=== PATIENT | male | born 2000 | race Caucasian/White ===

== ENCOUNTER 2023-08-27 10:00 | Emergency (ER) | payer OTHER, SELFPAY ==
[2023-08-27 10:10] VITALS: BP 136/92; PULSE 76; RESP 18; TEMP 36.7; O2SAT 98; BMI 25.7
--- NOTE | 2023-08-27 10:23 | ED.NAVMDI1 ---
HPI - Nausea/Vomiting/Diarrhea General Chief complaint: Abdominal Pain Stated complaint: ABDOMINAL PAIN/VOMITING Time Seen by Provider: 08/27/23 10:17 History of Present Illness HPI Narrative: 23-year-old male presents for nausea and vomiting which began about midnight. No diarrhea or fever or hematemesis. He does not have a history of intestinal issues. He has not been around anybody who has been ill. He reports that his stomach hurts as well. Related Data Previous Rx's ?Medication ?Instructions ?Recorded ondansetron 4 mg disintegrating 4 mg PO Q6H PRN nausea and 08/27/23 tablet vomiting #20 tabs Allergies Allergy/AdvReac Type Severity Reaction Status Date / Time No Known Drug Allergies Allergy Verified 08/27/23 10:10 Review of Systems ROS Narrative A ten point review of systems is negative except as noted above. Exam Narrative Exam Narrative: Nurses note and vital signs reviewed and patient is not hypoxic. General: The patient appears well and in no apparent distress. Patient is resting comfortably on cart. Skin: Warm, dry, pallor noted. There is no rash noted. Head: Normocephalic, atraumatic Eye: Normal conjunctiva, no drainage Ears, Nose, Mouth, and Throat: oral mucosa is moist. Nares patent. Cardiovascular: Regular Rate and Rhythm Respiratory: Patient is in no distress, no accessory muscle use, lungs are clear to auscultation, no wheezing, rales or rhonchi Back: non-tender GI: no tenderness to palpation, no masses appreciated. No rebound, guarding, or rigidity noted. Musculoskeletal: The patient has no evidence of calf tenderness, no pitting edema, symmetrical pulses noted bilaterally Neurological: A&O, normal speech Psychiatric: Cooperative Constitutional Vital Signs, click to edit/add: Last Vital Signs Temp 98.1 F 08/27/23 10:10 Pulse 76 08/27/23 10:10 Resp 18 08/27/23 10:10 BP 136/92 H 08/27/23 10:10 Pulse Ox 98 08/27/23 10:10 O2 Del Method Room Air 08/27/23 10:10 Course Vital Signs Vital signs: Vital Signs Temperature 98.1 F 08/27/23 10:10 Pulse Rate 76 08/27/23 10:10 Respiratory Rate 18 08/27/23 10:10 Blood Pressure 136/92 H 08/27/23 10:10 Pulse Oximetry 98 08/27/23 10:10 Oxygen Delivery Method Room Air 08/27/23 10:10 Temperature 98.1 F 08/27/23 10:10 Pulse Rate 76 08/27/23 10:10 Respiratory Rate 18 08/27/23 10:10 Blood Pressure 136/92 H 08/27/23 10:10 Pulse Oximetry 98 08/27/23 10:10 Oxygen Delivery Method Room Air 08/27/23 10:10 MDM - Nausea/Vomiting/Diarrhea MDM Narrative Medical decision making narrative: Blood work is nonspecific. The patient feels improved after being given IV fluids and Zofran and is able to be discharged home. Treatment diagnosis and follow-up were discussed with the patient. Differential Diagnosis Differential diagnosis: Likely food poisoning, gastroenteritis and dehydration Lab Data Attestation: I reviewed the patient's lab results. Labs: Lab Results 08/27/23 Range/Units 10:24 WBC 13.4 H (4.0-11.0) 10^3/uL RBC 5.81 (4.70-6.10) 10^6/uL Hgb 17.5 (14.0-18.0) g/dL Hct 51.3 (42.0-54.0) % MCV 88.3 (80.0-94.0) fL MCH 30.1 (25.9-34.0) pg MCHC 34.1 (29.9-35.2) g/dL RDW 12.1 (11.0-15.0) % Plt Count 302 (150-450) 10^3/uL MPV 9.6 (9.5-13.5) fL Neut % (Auto) 93.0 H (43.0-75.0) % Lymph % (Auto) 2.2 L (20.5-60.0) % [place] % (Auto) 3.4 (1.7-12.0) % Eos % (Auto) 0.9 (0.9-7.0) % Baso % (Auto) 0.2 (0.2-2.0) % Neut # (Auto) 12.5 H (1.4-6.5) 10^3/uL Lymph # (Auto) 0.3 L (1.2-3.8) 10^3/uL [place] # (Auto) 0.5 (0.3-0.8) 10^3/uL Eos # (Auto) 0.1 (0.0-0.7) 10^3/uL Baso # (Auto) 0.0 (0.0-0.1) 10^3/uL Abs Immat Gran (auto) 0.04 H (0.00-0.03) 10^3/uL Imm/Tot Granulo (auto) 0.3 (0.0-0.5) % Sodium 141 (136-145) mmol/L Potassium 4.1 (3.5-5.1) mmol/L Chloride 102 (98-107) mmol/L Carbon Dioxide 23.7 (21.0-32.0) mmol/L Anion Gap 19.4 BUN 19.0 H (7.0-18.0) mg/dL Creatinine 1.18 (0.70-1.30) mg/dL Est GFR ( Amer) >60 (>=60) Est GFR (Non-Af Amer) >60 (>=60) BUN/Creatinine Ratio 16.1 Glucose 186 H (74-106) mg/dL Calcium 9.3 (8.5-10.1) mg/dL Discharge Plan Discharge Stand Alone Forms: Portal Instructions Chief Complaint: Abdominal Pain Clinical Impression: Nausea and vomiting Patient Disposition: Home, Self-Care Time of Disposition Decision: 11:31 Condition: Good Mode of Transportation: Private Vehicle Prescriptions / Home Meds: New ondansetron 4 mg tablet,disintegrating 4 mg PO Q6H PRN (Reason: nausea and vomiting) Qty: 20 0RF Print Language: Luxembourgish Instructions: Acute Nausea and Vomiting (ED) Referrals: Physician,Non-Staff, MD [Primary Care Provider] - 1 week
[2023-08-27] MEDS: 0.9 % SODIUM CHLORIDE 1,000 ML 1000 ML IV (10:27)
[2023-08-27] MEDS: ONDANSETRON PF 4 MG/2 ML VIAL IV (10:27)
[2023-08-27 10:48] LABS: Basophils Percent Auto 0.2 % (0.2-2.0); Eosinophils Absolute Auto 0.1 10^3/uL (0.0-0.7); Eosinophils Percent Auto 0.9 % (0.9-7.0); Hematocrit 51.3 % (42.0-54.0); Hemoglobin 17.5 g/dL (14.0-18.0); Immature Granulocytes Abs Auto 0.04 10^3/uL (0.00-0.03); Immature Granulocytes Pct Auto 0.3 % (0.0-0.5); Lymphocytes Absolute Auto 0.3 10^3/uL (1.2-3.8); Lymphocytes Percent Auto 2.2 % (20.5-60.0); Mean Corpuscular HGB Conc 34.1 g/dL (29.9-35.2); Mean Corpuscular Hemoglobin 30.1 pg (25.9-34.0); Mean Corpuscular Volume 88.3 fL (80.0-94.0); Mean Platelet Volume 9.6 fL (9.5-13.5); Monocytes Absolute Auto 0.5 10^3/uL (0.3-0.8); Monocytes Percent Auto 3.4 % (1.7-12.0); Neutrophils Absolute Auto 12.5 10^3/uL (1.4-6.5); Platelet Count 302 10^3/uL (150-450); Red Blood Count 5.81 10^6/uL (4.70-6.10); Red Cell Distribution Width 12.1 % (11.0-15.0); White Blood Count 13.4 10^3/uL (4.0-11.0)
[2023-08-27 11:10] LABS: Anion Gap 19.4; BUN Creatinine Ratio 16.1; Calcium 9.3 mg/dL (8.5-10.1); Carbon Dioxide 23.7 mmol/L (21.0-32.0); Chloride 102 mmol/L (98-107); Estimated GFR (African America >60 (>=60); Estimated GFR (Non-African Ame >60 (>=60); Glucose 186 mg/dL (74-106); Potassium 4.1 mmol/L (3.5-5.1); Sodium 141 mmol/L (136-145)
[2023-08-27 11:37] VITALS: BP 129/86; PULSE 86; RESP 18; O2SAT 98
== END 2023-08-27 11:38 | disposition home or self-care (01) ==
PROVIDERS: Emergency Provider Emergency Medicine
DX: R11.2 Nausea with vomiting, unspecified (principal)
CPT/HCPCS: 36415; 80048; 85025; 96374; 99284

== ENCOUNTER 2024-06-30 22:51 | Emergency (ER) | payer OTHER, SELFPAY ==
[2024-06-30 22:53] VITALS: BP 146/84; PULSE 71; TEMP 37.1; O2SAT 98; BMI 26.4
--- NOTE | 2024-06-30 23:01 | ECG_ITS ---
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
--- NOTE | 2024-06-30 23:13 | XR_ITS ---
The [place] [id number] Patient Name: BLANCA MADERA MRN: [id number] date: 2000 Sex: M Assigned Patient Location: ER Current Patient Location: ER Accession/Order Number: [id number] Exam Date: 06/30/2024 23:20 Report Date: 06/30/2024 23:55 At the request of: LILIANE LR Procedure: XR chest 1V EXAM: XR chest 1V HISTORY: Chest pain. Near syncope. COMPARISON: None. TECHNIQUE: One view. FINDINGS: Cardiomediastinal silhouette and pulmonary vascularity are within normal limits. The lungs and the costophrenic angles are clear. XR/XR chest 1V IMPRESSION: Unremarkable chest. Electronically authenticated by: HAYDEN SANCHEZ Date: 06/30/2024 23:55
[2024-06-30 23:15] VITALS: PULSE 77
[2024-06-30 23:22] VITALS: PULSE 87
[2024-06-30 23:23] LABS: Basophils Absolute Auto 0.1 10^3/uL (0.0-0.1); Basophils Percent Auto 0.7 % (0.2-2.0); Eosinophils Absolute Auto 0.2 10^3/uL (0.0-0.7); Eosinophils Percent Auto 1.7 % (0.9-7.0); Hematocrit 46.2 % (42.0-54.0); Hemoglobin 16.3 g/dL (14.0-18.0); Immature Granulocytes Abs Auto 0.02 10^3/uL (0.00-0.03); Immature Granulocytes Pct Auto 0.2 % (0.0-0.5); Lymphocytes Absolute Auto 2.5 10^3/uL (1.2-3.8); Lymphocytes Percent Auto 27.3 % (20.5-60.0); Mean Corpuscular HGB Conc 35.3 g/dL (29.9-35.2); Mean Corpuscular Hemoglobin 30.4 pg (25.9-34.0); Monocytes Absolute Auto 0.5 10^3/uL (0.3-0.8); Monocytes Percent Auto 5.2 % (1.7-12.0); Neutrophils Percent Auto 64.9 % (43.0-75.0); Platelet Count 237 10^3/uL (150-450); Red Blood Count 5.37 10^6/uL (4.70-6.10); Red Cell Distribution Width 11.7 % (11.0-15.0); White Blood Count 9.2 10^3/uL (4.0-11.0)
[2024-06-30 23:31] VITALS: PULSE 80
[2024-06-30 23:35] LABS: Influenza Virus A Antigen Negative; Influenza Virus B Antigen Negative; Internal Control Within Normal Limits
[2024-06-30 23:40] VITALS: PULSE 69
[2024-06-30 23:42] LABS: Anion Gap 10.7; BUN Creatinine Ratio 11.1; Calcium 8.7 mg/dL (8.5-10.1); Carbon Dioxide 30.1 mmol/L (21.0-32.0); Chloride 104 mmol/L (98-107); Estimated GFR (African America >60 (>=60 mL/min/1.73m^2); Estimated GFR (Non-African Ame >60 (>=60 mL/min/1.73m^2); Glucose 100 mg/dL (74-106); Potassium 3.8 mmol/L (3.5-5.1); Sodium 141 mmol/L (136-145); Troponin I High Sensitivity <4.0 pg/mL (4.0-76.1)
[2024-07-01] VITALS (9 sets, daily range): BP systolic 140; BP diastolic 88; PULSE 59–86; O2SAT 99
[2024-07-01] MEDS: 0.9 % SODIUM CHLORIDE 1,000 ML 1000 ML IV (00:10)
--- NOTE | 2024-07-01 01:23 | ED.GENADUL1 ---
HPI HPI - General Adult General Chief complaint: Weakness Stated complaint: BP, HEART RATE Time Seen by Provider: 06/30/24 22:52 Source: patient Mode of arrival: walk-in Limitations: no limitations History of Present Illness HPI narrative: 23-year-old male to the emergency department chief complaint of episode of palpitations that occurred at work. 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 He reports that this occurs intermittently to him. He reports it occurs approximately once a month. It began when he was in seventh grade. He has been evaluated for this once prior and was told that he had tachycardia. He also had a episode of some mild chest discomfort at the onset. He denies any shortness of breath. Otherwise at his baseline health. Related Data Home Medications ?Medication ?Instructions ?Recorded ?Confirmed No Known Home Medications 06/30/24 06/30/24 Allergies Allergy/AdvReac Type Severity Reaction Status Date / Time No Known Drug Allergies Allergy Verified 06/30/24 22:59 Opioid HPI Opioid Management Most Recent Opioid Data: No Data to Display Review of Systems ROS Status of ROS 10 or more systems reviewed and unremarkable except as noted in history and below PFSH PFSH Social History Little interest or pleasure in doing things: not at all Feeling down, depressed, or hopeless: not at all Exam Narrative Exam Narrative: VITALS: I have reviewed the triage vital signs. GENERAL: Well developed, well appearing adult in no acute distress. NEURO: Alert and oriented. Moves all extremities. Face is symmetric and expressive. EYES: PERRL. No scleral icterus or conjunctival injection. No discharge. HENT: Normocephalic, atraumatic. Hearing is grossly intact. Nares grossly patent and without discharge. Mucous membranes moist. NECK: No JVD. Patient moves neck without restriction. CARDIO: Rhythm regular. Normal rate. No murmur, rub, or gallop. Pulses equal bilaterally in the upper and lower extremity. No lower extremity edema. PULM: Lungs clear to auscultation in all edward. No wheezes, rales, or rhonchi. No conversational dyspnea. No splinting, stridor, or accessory muscle use. GI/: Abdomen is soft and non-tender. Normoactive bowel sounds. EXTREMITIES: Symmetric muscle bulk. No joint swelling. No clubbing, cyanosis, or deformity. SKIN: Warm and dry. Normal turgor. No rash or lesions appreciated. PSYCH: Mood, affect, and interaction is appropriate to the setting. Constitutional Vital Signs, click to edit/add: Last Vital Signs Temp 98.7 F 06/30/24 22:53 Pulse 67 07/01/24 01:21 Resp 16 07/01/24 01:21 BP 140/88 07/01/24 01:21 Pulse Ox 99 07/01/24 01:21 O2 Del Method Room Air 07/01/24 01:21 Course Vital Signs Vital signs: Vital Signs Temperature 98.7 F 06/30/24 22:53 Pulse Rate 71 06/30/24 22:53 Respiratory Rate 18 06/30/24 22:53 Blood Pressure 146/84 H 06/30/24 22:53 Pulse Oximetry 98 06/30/24 22:53 Temperature 98.7 F 06/30/24 22:53 Pulse Rate 67 07/01/24 01:21 Respiratory Rate 16 07/01/24 01:21 Blood Pressure 140/88 07/01/24 01:21 Pulse Oximetry 99 07/01/24 01:21 Oxygen Delivery Method Room Air 07/01/24 01:21 Medical Decision Making MDM Narrative Medical decision making narrative: 23-year-old male to the emergency department chief complaint of episode of palpitations and near syncope after bending over at work. Vital stable, the patient is afebrile. His cardiopulmonary examination is unremarkable. Cardiac workup is initiated. CBC without acute findings. Chemistry does show some renal insufficiency of unknown duration. Will treat with a liter of fluids and follow-up with PCP for repeat testing. Troponin is negative. Chest x-ray without acute findings. EKG without evidence of acute ischemia. He does have dagger like Q waves in inferior and lateral leads. Given the clinical history and this finding I am concerned he may have hypertrophic cardiomyopathy. I discussed the finding with the patient. I instructed him to call the office of the on-call operating room orderly tomorrow for definitive diagnosis. Return precautions were discussed. Ongoing restrictions were provided. All questions were answered. The patient was discharged home. Medical Records Medical records reviewed: Yes I reviewed the patient's medical records Lab Data Lab results reviewed: Yes I reviewed the patient's lab results Labs: Lab Results 06/30/24 06/30/24 Range/Units 23:15 23:17 WBC 9.2 (4.0-11.0) 10^3/uL RBC 5.37 (4.70-6.10) 10^6/uL Hgb 16.3 (14.0-18.0) g/dL Hct 46.2 (42.0-54.0) % MCV 86.0 (80.0-94.0) fL MCH 30.4 (25.9-34.0) pg MCHC 35.3 H (29.9-35.2) g/dL RDW 11.7 (11.0-15.0) % Plt Count 237 (150-450) 10^3/uL MPV 9.0 L (9.5-13.5) fL Neut % (Auto) 64.9 (43.0-75.0) % Lymph % (Auto) 27.3 (20.5-60.0) % [place] % (Auto) 5.2 (1.7-12.0) % Eos % (Auto) 1.7 (0.9-7.0) % Baso % (Auto) 0.7 (0.2-2.0) % Neut # (Auto) 6.0 (1.4-6.5) 10^3/uL Lymph # (Auto) 2.5 (1.2-3.8) 10^3/uL [place] # (Auto) 0.5 (0.3-0.8) 10^3/uL Eos # (Auto) 0.2 (0.0-0.7) 10^3/uL Baso # (Auto) 0.1 (0.0-0.1) 10^3/uL Abs Immat Gran (auto) 0.02 (0.00-0.03) 10^3/uL Imm/Tot Granulo (auto) 0.2 (0.0-0.5) % Sodium 141 (136-145) mmol/L Potassium 3.8 (3.5-5.1) mmol/L Chloride 104 (98-107) mmol/L Carbon Dioxide 30.1 (21.0-32.0) mmol/L Anion Gap 10.7 BUN 15.0 (7.0-18.0) mg/dL Creatinine 1.35 H (0.70-1.30) mg/dL Est GFR ( Amer) >60 (>=60 mL/min/1.73m^2) Est GFR (Non-Af Amer) >60 (>=60 mL/min/1.73m^2) BUN/Creatinine Ratio 11.1 Glucose 100 (74-106) mg/dL Calcium 8.7 (8.5-10.1) mg/dL Troponin I High Sens <4.0 L (4.0-76.1) pg/mL Influenza Type A Ag Negative Influenza Type B Ag Negative Imaging Data Chest x-ray: Attestation: I have reviewed the pertinent imaging results. Radiologist's impression: ITS Impressions Chest X-Ray 06/30/24 23:13 IMPRESSION: Unremarkable chest. Electronically authenticated by: HAYDEN SANCHEZ Date: 06/30/2024 23:55 ECG Data Attestation: I personally reviewed and interpreted this ECG as follows: (Normal sinus rhythm at a rate of 77. Normal QTc at 400. No STEMI. Abnormal Q waves in the inferior and lateral leads. ) Discharge Plan Discharge Chief Complaint: Weakness Clinical Impression: Palpitations Patient Disposition: Home, Self-Care Time of Disposition Decision: 01:06 Condition: Good Mode of Transportation: Private Vehicle Prescriptions / Home Meds: No Action No Known Home Medications Print Language: Vietnamese Instructions: Heart Palpitations (ED), Hypertrophic Cardiomyopathy (ED) Additional Instructions: Call the office of your primary care doctor to arrange for follow-up within the above-stated timeframe. Your ED visit was focused on your acute issue and does not replace primary care. You should review your labs, imaging, and diagnoses from this ED visit with your primary care physician. There may be non-emergent/ incidental findings that need further evaluation. You should review your vital signs including blood pressure with your PCP. If you were prescribed medications you should discuss possible side-effects and drug interactions with your pharmacist. Call 911 or go to the nearest Emergency Department if you develop any new or worsening symptoms. Seek immediate medical attention if you develop: worsening chest pain, new chest pain, nausea, vomiting, weakness, numbness, tingling, excessive sweating, shortness of breath, difficulty breathing, loss of motion in your arms or legs, or any new or worsening symptoms. Your EKG had abnormalities that are concerning for a condition known as hypertrophic cardiomyopathy. You need to follow-up in the short-term with cardiology. I recommend you call their office tomorrow to arrange for outpatient evaluation. You will need to obtain an echocardiogram for diagnosis. Avoid strenuous exercise or sports until cleared by cardiology. You may go to work. Referrals: DG MARTEL [Physician] - As soon as possible (Call the office and let them know you were seen and Doctor was concerned about hypertrophic cardiomyopathy. ) Physician,Non-Staff, [Primary Care Provider] - 1 week Discharge Date/Time: 07/01/24 01:23
== END 2024-07-01 01:23 | disposition home or self-care (01) ==
PROVIDERS: Emergency Provider Student in an Organized Health Care Education/Training Program
DX: R00.2 Palpitations (principal)
CPT/HCPCS: 36415; 71045; 80048; 84484; 85025; 87804; 93005; 99285

== ENCOUNTER 2024-07-22 08:09 | Outpatient (OUT) | payer OTHER, SELFPAY ==
--- NOTE | 2024-07-22 | PCN_ITS ---
CARDIAC STRESS TEST Requesting Physician: Luther Mullins M.D. Procedure Date: 07/22/2024 PERFORMING PROVIDER: Ector Armstrong M.D. INDICATION: Chest pain, palpitations. STRESS TEST PROTOCOL: Treadmill stress test with Jose L protocol. Resting EKG: Patient has diffuse ST segment elevation, likely benign early repolarization. Resting heart rate: 67 Peak heart rate: 169 Peak maximal heart rate percentage: 86% Resting blood pressure: 104/60 Peak blood pressure: 128/66 Exercise time: 11 minutes 45 seconds Stage reached: 4 Max METS: 13.4 Reason for termination: Target heart rate achieved, fatigue. Heart rate recovery: Normal. Chronotropic response index: 0.79 Functional capacity: Average Blood pressure response: Normal. Parikh treadmill score: +5 CONCLUSION: 1. Resting EKG demonstrates sinus rhythm with diffuse ST elevation, likely benign early repolarization. 2. Patient exercise for 11 minutes and 45 seconds. 3. He did have [address] depression in inferior leads at peak maximal exercise. 4. This is a positive treadmill stress test. 5. Parikh treadmill score is 5, which portends low risk of angiographically significant coronary artery disease. 6. Clinical correlation advised. SIDNEY
--- OUTSIDE RECORDS SUMMARY | 2024-07-22 08:22 | XMS_ITS | CCD ---
Author Organization [facility] Informat ion Partnership [employer] [facility] Care Team Providers Care Process Control Engineer Name Role Phone NO FAMILY, PHYSICIAN Primary Care Provider Unava ilable Raymon, GLASS TECHNOLOGIST-BC Marlene E Emergency Provider NONE, XXXX Primary Care Physician Unavailab JUANITA Longo Attending Unavailable HANNAH MORAN Attending Unavailable Unavailable Primary Care Provider UnavailNathaniel Acharya Attending Unavailable Pablo Teague Attending Unavailable Martínez Grover Attending Unavailable YARITZA LAUREN Attending Unavailable Medications Current Medications Medication Drug Class(es) Dates Sig (Normalized) Sig (Original) ciprofloxacin 3 mg/ml ophthalmic solution (5 sources) Quinolone Antimicrobial Start: 03-01-2024 take 2 drop(s) into the eye(s) every four hours ciprofloxacin (Ciloxan) 0.3 % ophthalmic solution USE 2 DROPS IN AFFECTED EYE EVERY 4 HOURS FOR 7 DAYS 03/01/2024 Active Start: 03-01-2024 End: 03-08-2024 ciprofloxacin Opth 0.3% Adwoa 2 drop(s), OPTH, q4hr for 7 day(s), 5 mL, Refill(s) 0, [facility]/pharmacy #[id number], 185.5, cm, 03/01/24 9:17:00 EDT, Height/Length Dosing, 88.6, kg, 03/01/24 9:17:00 EDT, Weight Dosing Start Date: 03/01/24 Stop Date: 03/08/24 Status: Ordered prednisoLONE acetate 10 mg/ml ophthalmic suspension (1 source) Corticosteroid Start: 03-13-2024 End: 03-27-2024 take 1 drop(s) into the eye(s) in the morning prednisoLONE acetate (Pred-Forte) 1 % ophthalmic suspension Indications: Uveitis, anterior Administer 1 drop into the right eye in the morning and 1 drop before bedtime. Do all this for 14 days. 5 mL 03/13/2024 03/27/2024 Active traMADol hydrochloride 50 mg oral tablet (1 source) Opioid Agonist Start: 11-04-2018 take 0.5-1 tablets by mouth every six hours as needed for pain Tramadol (Ultram) 50 mg tablet Active 50 MG PO Q6H 45 7 November 04, 2018 12:37pm 1/2 - 1 tab po q 6 hours prn pain Completed/Discontinued Medications Medication Drug Class(es) Dates Sig (Normalized) Sig (Original) ibuprofen 600 mg oral tablet (2 sources) Nonsteroidal Anti-inflammatory Drug Start: 05-08-2017 End: 11-04-2018 Ibuprofen Discontinued 600 MG PO every 6 to 8 hours May 08, 2017 11:07am November 04, 2018 8:23am sulfamethoxazole 800 mg / trimethoprim 160 mg oral tablet (1 source) Dihydrofolate Reductase Inhibitor Antibacterial, Sulfonamide Antimicrobial Start: 03-30-2017 End: 05-08-2017 take 1 tablet by mouth twice daily Sulfamethoxazole- Trimethoprim (Bactrim Ds) 800-160 mg tablet Discontinued 1 TAB PO Twice daily March 30, 2017 1:07pm May 08, 2017 10:17am Problems Active Problems Problem Classification Problem Date Documented Date Episodic/Chronic Blindness and vision defects (2 sources) Blurring of visual image; Translations: [Other visual disturbances] 03-09-2024 Episodic Cardiac dysrhythmias (2 sources) Palpitations; Translations: [Palpitations] Onset: 07-03-2024 Episodic Inflammation; infection of eye (except that caused by tuberculosis or sexually transmitteddisease) (3 sources) Acute conjunctivitis of right eye; Translations: [Unspecified acute conjunctivitis, right eye] Onset: 03-01-2024 Episodic Nonspecific chest pain (2 sources) Other chest pain; Translations: [Other chest pain] Onset: 07-03-2024 Episodic Open wounds of extremities (1 source) Laceration of hand; Translations: [Laceration without foreign body of unspecified hand, initial encounter] 11-23-2021 Episodic Other eye disorders (2 sources) Pain in eye; Translations: [Ocular pain, right eye] 03-09-2024 Episodic Other screening for suspected conditions (not mental disorders or infectious disease) (4 sources) Abnormal electrocardiogram [ECG] [EKG]; Translations: [Other specified abnormal findings of blood chemistry] Onset: 07-03-2024 Episodic Skin and subcutaneous tissue infections (3 sources) Pilonidal cyst; Translations: [Pilonidal cyst without abscess] 03-30-2017 Episodic Sprains and strains (1 source) Sprain of ankle; Translations: [Sprain of unspecified ligament of unspecified ankle, initial encounter] 05-08-2017 Episodic Past or Other Problems Problem Classification Problem Date Documented Da te Episodic/Chronic Unclassified (2 sources) kidney 1 09-30-2009 Comment on above: father states that k ineys are located in the front of his abdomen and are connected. States they are each functioning but they are connected to each other. Results Test Name Value Interpretation Reference Range Facil ity Office Visiton 07-03-2024 Follow-up visit [id number] JackieBlanca Rojelio 2000 M Date Provider Department Center 07/03/2024 Manuela-YARITZA LAUREN [facility] Family History Problem Relation Age of Onset Atrial fibrillation Mother Heart attack Mother's Sister 42 Atrial fibrillation Maternal Grandmother Other Maternal Grandfather Family Status - Relation Status Age at Mother Mother's Sister Alive Maternal Grandmother Maternal Grandfather Level of Service:68484 DE OFFICE/OUTPATIENT NEW MODERATE MDM 45 MINUTES Normal [facility] ED Note-Physicianon 03-28-20 24 ED Note-Physician ED Note-Physician Basic Information Time Seen: Daniela Tolbert PA-C 03/01/2024 09:12 Chief Complaint pt to ER c/o r eye pain and burning. Pt states that it started 2 weeks ago. pt does wear contacts. History of Present Illness Patient is a 23-year-old male who presents to the ED with right thigh pain that have been ongoing for the past 2 weeks. Patient describes the pain as a burning sensation. 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 Patient states he normally wears contacts but has been wearing glasses while the eye has been hurting. Patient denies any specific injury or inciting incident. Says that there is a burning pain that sometimes radiates to right yazdanism and along the parietal bone. Patient denies any changes in vision, headache, fevers, or any other complaints. Review of Systems A 10 point review of systems is negative except as noted above. Medical and Surgical History: Reviewed and noted Social history: Lives at home Family History: Reviewed. Tobacco: Denies Physical Exam Vitals & Measurements T: 36.4 ???C(Oral) HR: 59(Peripheral) RR: 17 BP: 132/86 SpO2: 100% HT: 185.5 cm WT: 88.6 kg BMI: 25.75 General: The patient appears well and in no apparent distress. Patient is resting comfortably on cart. Skin: Warm, dry, no pallor noted. Head: Normocephalic, atraumatic Neck: No JVD Eye: PERRLA, EOMI without pain, left conjunctival erythema with clear tearing, slight crusting is noted in the left medial aspect near the lacrimal carbuncle. No foreign bodies observed, visual field intact, no tenderness to palpation around the periorbital region ENT: Moist mucous membranes. No posterior pharyngeal erythema no exudate swelling shift or mass. No trisumus no stridor. Tympanic membranes unremarkable bilaterally no injection erythema no posterior effusions perforation or pus. Cardiovascular: Regular rate normal peripheral perfusion Respiratory: No respiratory distress no accessory muscle use no obvious audible wheezing Musculoskeletal: normal ROM, no deformity, no swelling Neurological: A&O moves all extremities equal strength and symmetry Psychiatric: Cooperative and appropriate Procedure Daniela Philip PA-C had a [id number] interaction with the patient. I personally performed a physical exam and medical decision making. I have verified the documentation by the student as accurately representing the information obtained. Medical Decision Making Patient is a 23-year-old male who presents to the ED with right thigh pain that have been ongoing for the past 2 weeks. Patient is hemodynamically stable and afebrile. There is no periorbital edema or erythema or pain with extraocular movement ruling out concerns for periorbital/orbital cellulitis. Patient's eye was anesthetized with 2 tetracaine drops and stained with fluorescein stain. It was then observed under a Harding lamp. No corneal abrasions or foreign bodies were observed. Patient is being prescribed ciprofloxacin drops and will follow-up with an rag washer next 2 to 3 days. He was advised to return to ED with any new or worsening symptoms. Patient is agreeable with the plan and all questions were answered. Assessment/Plan Acute conjunctivitis, right eye (H10.31: Unspecified acute conjunctivitis, right eye) Orders: ciprofloxacin ophthalmic, 2 drop(s), OPTH, q4hr for 7 day(s), 5 mL, Refill(s) 0, [facility]/pharmacy #[id number], 185.5, cm, 03/01/24 9:17:00 EDT, Height/Length Dosing, 88.6, kg, 03/01/24 9:17:00 EDT, Weight Dosing fluorescein ophthalmic, 1 mg, 1 EA, Test, OPTH, Once, Stop date 03/01/24 9:31:00 EDT, STAT, Start date 03/01/24 9:31:00 EDT tetracaine ophthalmic, 2 drop(s), Soln-Opth, OPTH, Once, Stop date 03/01/24 9:31:00 EDT, STAT, Start date 03/01/24 9:31:00 EDT Medications Administered Given fluorescein ophthalmic 1 mg test, 1 mg, OPTH tetracaine Opth 0.5% Adwoa, 2 drop(s), OPTH Disposition Plan Patient Discharge Condition Stable Discharge Disposition home Discharge Prescription List Prescriptions ciprofloxacin Opth 0.3% Adwoa, 2 drop(s), OPTH, q4hr Follow-up With When Contact Information Hannah Moran In 3 days 03/04/2024 EDT [address] [phone] Business (1) Additional Instructions: Call to schedule an appointment with the rag washer in the next 2 to 3 days. Use the antibiotic drops as prescribed. Return to the ED with any new or worsening symptoms. Patient Education Bacterial Conjunctivitis, Adult, [id number] Attestation Patient seen and evaluated by the physician assistant statistician. Attending physician was present in the emergency department and supervised care. This visit was performed by both the physician and an APC. I performed all aspects of the MDM as documented. This report was transcribed using voice recognition software. Every effort was made to ensure accuracy, however, inadvertently computerized director medical science mistakes may be (more content not included)... Normal [facility] Comment on above: Result Comment: Electronically Signed By : Didi SANCHEZ, Daniela Chavis\.br\Date and Time Signed: 03/01/24 17:02 EDT\.br\Electronically Co-Signed By: Martínez Grover MD\.br\Date and Time Co-Signed: 03/28/24 17:07 EDT ED Clinical Summaryon 2023 ED Clinical Summary ED Clinical Summary [place] [id number] ED Clinical Summary Person Information Name: BLANCA MEJIA [place] Age: 23 Years : 2000 Sex: Male Language: Serbian PCP: NONE, XXXX Marital Status: Single Phone: [phone] Visit Id: Visit Reason: Eye pain; Eye problem; OD redness/pain Speciality: Acuity: 4 Enc Type: Emergency Med Service: Emergency Arrival: 03/09/2024 14:01:10 Discharge: 03/09/2024 15:59:56 LOS: 000 01:58 Checkin: 03/09/2024 14:01:10 Checkout: 03/09/2024 15:59:56 Dispo Type: Home (Routine DC) EVENTS: Event Name Event Status Request Date/Time Start Date/Time Complete Date/Time Arrive Complete 03/09/2024 14:01:10 03/09/2024 14:01:10 03/09/2024 14:01:10 Document Home Meds Request 03/09/2024 14:01:10 Triage Complete 03/09/2024 14:01:10 03/09/2024 14:10:51 03/09/2024 14:10:51 Bed Assign Complete 03/09/2024 14:04:59 03/09/2024 14:04:59 03/09/2024 14:04:59 Dr Exam Complete 03/09/2024 14:04:59 03/09/2024 14:06:20 03/09/2024 14:06:20 RN Exam Complete 03/09/2024 14:04:59 03/09/2024 16:01:30 03/09/2024 16:01:30 Registration Complete 03/09/2024 14:06:20 03/09/2024 14:10:27 03/09/2024 14:10:27 Dr Exam Complete 03/09/2024 14:06:50 03/09/2024 14:06:50 03/09/2024 14:06:50 Reg Complete Request 03/09/2024 14:10:27 Reg Bed Request Complete 03/09/2024 14:10:28 03/09/2024 14:10:28 03/09/2024 14:10:28 Meds Admin Complete 03/09/2024 14:13:31 03/09/2024 14:20:47 Meds Admin Complete 03/09/2024 15:37:50 03/09/2024 15:58:21 Discharge Complete 03/09/2024 15:38:49 03/09/2024 16:02:06 03/09/2024 16:02:06 Transfer Complete 03/09/2024 16:02:06 03/09/2024 16:02:06 03/09/2024 16:02:06 ADDRESS: [address] [place] [phone] PHYS DOC NOTES: MEDICAL INFORMATION: Prescriptions Given: PATIENT EDUCATION INFORMATION: Instructions: Bacterial Conjunctivitis, Adult, [id number] Follow up: With: Address: When: [facility], [address] [facility], [facility] [address] [place] [address] Business (1) In 3 days 03/12/2024 DIAGNOSIS: 1:Conjunctivitis of right eye Normal [facility] ED Note-Physicianon 03-09-20 ED Note-Physician ED Note-Physician Basic Information Time Seen: Angela Connell PA-C 03/09/2024 14:06 Chief Complaint pt presents with over a week of reddness to right eye and on ATB drops. pt verbalized pain to eye History of Present Illness This patient presents emergency department chief complaint of ongoing redness of his right eye. The patient has not worn his contact lenses since his last visit. He has been wearing his eyeglasses. He has been using the drops that they prescribed him. He states he thinks the redness has actually gotten worse. He is having some slight discomfort. He states that it is more bothersome whenever he is in bright lights. He denies any visual disturbances. He denies any fevers chills or sweats. He denies any purulent drainage. Review of Systems Constitutional: Denies weight loss, fevers, chills, sweats, malaise Eyes: Denies visual changes, double vision, scotomas, floaters. + R eye discomfort ENT: Denies runny nose, epistaxis, sinus pain, ear pain, ringing in ears, tooth ache, sore throat, pain with swallowing Cardiovascular: Denies chest pain, shortness of breath, orthopnea, edema, palpitations, loss of consciousness, claudication Respiratory: Denies cough, sputum production, wheezing, hemoptysis, shortness of breath, dyspnea on exertion Gastrointestinal: Denies abdominal pain, unintentional weight loss, difficulty swallowing, indigestion, bloating, cramping, loss of appetite, nausea, vomiting, diarrhea, constipation, hematochezia, melena Genitourinary: Denies any incontinence of urine, dysuria, hematuria, nocturia, polyuria, hesitancy, frequency, urgency, burning Musculoskeletal: Denies joint pain, morning stiffness, joint swelling, decreased range of motion, crepitus Integumentary: Denies any pruritus, rashes, lesions, wounds, petechiae Neurologic: Denies any changes in sight, smell, hearing, taste, seizures, headache, paresthesia, numbness, weakness, balance disturbance Psychiatric denies any depression, change in sleep patterns, anxiety, difficulty concentrating, paranoia, anhedonia, lack of energy, inés Hematologic/lymphatic: Denies any purpura, petechiae, excessive bleeding, bruising Physical Exam Vitals & Measurements T: 36.5 ?C(Oral) HR: 65(Peripheral) RR: 16 BP: 125/82 SpO2: 100% HT: 185.42 cm WT: 90.1 kg BMI: 26.21 Vital Signs reviewed and noted. General: Alert, no acute distress, patient resting comfortably Skin: warm, intact, no pallor noted Head: Normocephalic, atraumatic Eye: Right conjunctiva is injected. The upper lid was everted with no evidence of foreign body. The inner lower lid was examined with no evidence of foreign body. Fluorescein staining was performed with no uptake for foreign body, or corneal abrasion. Cardiac: Regular rate and rhythm Respiratory: Clear to auscultation Musculoskeletal: No deformity, full ROM. Neurological: alert and oriented, normal sensory and motor observed. Psychiatric: Cooperative Medical Decision Making MEDICAL DECISION MAKING Number and Complexity of Problems Differential Diagnosis: Bacterial conjunctivitis, allergic conjunctivitis, possible allergic reaction to current eye medication MDM Data External documents reviewed: Not applicable My EKG interpretation: Noted in chart if applicable My CT interpretation: Noted in chart if applicable My X-ray interpretation: Noted in chart if applicable My Ultrasound interpretation: Not applicable Decision rules/scores evaluated: Noted in chart if applicable Discussed with: Not applicable Treatment and Disposition ED Course: Patient was interviewed and examined. I discussed with the patient he could be having a reaction to the Cipro eyedrop. I discussed with the patient we will change to bacitracin ophthalmic ointment. We provide the patient with a tube of the ointment. I placed the first dose in here so that both the patient and his family member could be instructed in proper administration. The patient and his family I discussed the discharge diagnosis, plan of care, home-going instructions and prescription with them. Patient was discharged to home in stable condition. I strongly recommended follow-up with Dr. [facility] they are to return to the emergency department for any further problems or concerns.. Shared decision making: I discussed the discharge diagnosis and plan of care with the patient and his family member. They are in agreement with the plan of care. Code status: Not applicable Assessment/Plan 1. Conjunctivitis of right eye (H10.9: Unspecified conjunctivitis) Orders: bacitracin/neomycin/po lymyxin B ophthalmic, 1 rupinder, Ointment, OPTH, Once, Stop date 03/09/24 15:37:00 EDT, STAT, Start date 03/09/24 15:37:00 EDT fluorescein ophthalmic, 1 mg, 1 EA, Test, OPTH, Once, Stop date 03/09/24 14:13:00 EDT, STAT, Start date 03/09/24 14:13:00 EDT tetracaine ophthalmic, 2 drop(s), Soln-Opth, Eye-Right, Once, Stop date 03/09/24 14:13:00 EDT, STAT, Start date 03/09/24 14:13:00 EDT Medica (more content not included)... Normal [facility] Comment on above: Result Comment: Electronically Signed By : Angela Connell PA-C\.br\Date and Time Signed: 03/09/24 15:57 EDT\.br\Electronically Co-Signed By: Pablo Teague DO\.br\Date and Time Co-Signed: 03/09/24 16:31 EDT ED Patient Summaryon 024 ED Patient Summary ED Patient Summary [address] [address] Patient Discharge Instructions Person Information Name: BLANCA MEJIA Age: 23 Years Arrival Date: 03/09/2024 14:01:10 Discharge Diagnosis: 1:Conjunctivitis of right eye Primary Care Physician: NONE, XXXX Provider Information Primary Provider: Pablo Teague DO Advanced Batter Scaler:Lakesha The exam and treatment you received in the Emergency Department were for an urgent problem and are not intended as complete care. It is important that you follow up with a doctor, nurse practitioner, or physician?s assistant statistician for ongoing care. If your symptoms become worse or you do not improve as expected and you are unable to reach your usual health care provider, you should return to the Emergency Department. We are available 24 hours a day. BLANCA MEJIA has been given the following list of patient education materials, prescriptions and follow-up instructions: Follow-up Instructions: With: Address: When: [facility], [address] [place] [id number] Business (1) In 3 days 03/12/2024 In the event that this physician does not participate in your insurance network, please consult with your insurance company to find a nearby participating provider. Patient Education Materials: Bacterial Conjunctivitis, Adult, Bbgv-gg-Toxh A MESSAGE TO ALL PATIENTS REGARDING OPIOIDS PRESCRIPTION OPIOIDS: WHAT YOU NEED TO KNOW Prescription opioids can be used to help relieve bxeuwibb-qw-zbcbpy pain and are often prescribed following a surgery or injury, or for certain health conditions. These medications can be an important part of the treatment but also come with serious risks. It is important to work with your healthcare provider to make sure you are getting the safest, most effective care. WHAT ARE THE RISKS AND SIDE EFFECTS OF OPIOID USE? Prescription opioids carry serious risks of addiction and overdose, especially with prolonged use. An opioid overdose, often marked by slowed breathing, can cause sudden . The use of prescription opioids can have a number of side effects as well, even when taken as directed: ? Tolerance?meaning you might need to take more of the medication for the same pain relief ? Physical dependence?meaning you have symptoms of withdrawal when a medication is stopped ? Increased sensitivity to pain ? Constipation ? Nausea, vomiting, and dry mouth ? Sleepiness and dizziness ? Confusion ? Depression ? Low levels of testosterone that can result in lower sex drive, energy, and strength ? Itching and sweating RISKS ARE GREATER WITH: ? History of drug misuse, substance use disorder, or overdose ? Mental health conditions (such as depression or anxiety) ? Sleep apnea ? Older age (65 years and older) ? Avoid alcohol while taking prescription opioids. Also, unless specifically advised by your health care provider, medications to avoid include: ? Benzodiazepines (such as Xanax or Valium) ? Muscle relaxants (such as Soma or Flexeril) ? Hypnotics (such as Ambien or Lunesta) ? Other prescription opioids KNOW YOUR OPTIONS Talk to your health care provider about ways to manage your pain that don?t involve prescription opioids. Some of these options may actually work better and have fewer risks and side effects. Options may include: ? Pain relievers such as acetaminophen, ibuprofen, and naproxen ? Some medication that are also used for depression or seizures ? Physical therapy and exercise ? Cognitive behavioral therapy, a psychological, goal-directed approach, in which patients learn how to modify physical, behavioral, and emotional triggers of pain and stress. IF YOU ARE PRESCRIBED OPIOIDS FOR PAIN: ? Never take opioids in greater amounts or more often than prescribed. ? Follow up with your primary health care provider. o Work together to create a plan on how to manage your pain. o Talk about ways to help manage your pain that don?t involve prescription opioids. o Talk about any and all concerns and side effects. ? Help prevent misuse and abuse o Never sell or share prescription opioids. o Never use another person?s prescription opioids. ? Store prescription opioids in a secure place and out of reach of others (this may include visitors, children, friends, and family). ? Safely dispose of unused prescription opioids: Find your community drug take-back program or your pharmacy mail-back program, or flush them down the toilet, following guidance from the Food and Drug Administration (www.fda.gov/Drugs/Res ourcesForYou). ? Visit www.cdc.gov/drugoverdo se to learn about the risks of opioids abuse and overdose. ? If you believe you may be struggling with addiction, tell your health neurocritical care physician and ask for guidance or call [facility] National Help (more content not included)... Normal [facility] ED Clinical Summaryon 2023 ED Clinical Summary ED Clinical Summary [address] [address] ED Clinical Summary Person Information Name: BLANCA MEJIA [place] Age: 23 Years : 2000 Sex: Male Language: Serbian PCP: NONE, XXXX Marital Status: Single Phone: [phone] Visit Id: Visit Reason: Eye pain; EYE PAIN Speciality: Acuity: 4 Enc Type: Emergency Med Service: Emergency Arrival: 03/01/2024 08:56:01 Discharge: 03/01/2024 10:23:02 LOS: 000 01:27 Checkin: 03/01/2024 08:56:01 Checkout: 03/01/2024 10:23:02 Dispo Type: Home (Routine DC) EVENTS: Event Name Event Status Request Date/Time Start Date/Time Complete Date/Time Arrive Complete 03/01/2024 08:56:01 03/01/2024 08:56:01 03/01/2024 08:56:01 Document Home Meds Request 03/01/2024 08:56:01 Triage Complete 03/01/2024 08:56:01 03/01/2024 09:17:31 03/01/2024 09:17:31 Dr Exam Complete 03/01/2024 08:58:13 03/01/2024 08:58:13 03/01/2024 08:58:13 Registration Complete 03/01/2024 08:58:13 03/01/2024 08:59:15 03/01/2024 08:59:15 Reg Complete Request 03/01/2024 08:59:15 Reg Bed Request Complete 03/01/2024 08:59:15 03/01/2024 08:59:15 03/01/2024 08:59:15 Bed Assign Complete 03/01/2024 09:10:25 03/01/2024 09:10:25 03/01/2024 09:10:25 RN Exam Complete 03/01/2024 09:10:25 03/01/2024 09:19:09 03/01/2024 09:19:09 Dr Exam Complete 03/01/2024 09:12:41 03/01/2024 09:12:41 03/01/2024 09:12:41 Registration Request 03/01/2024 09:12:41 Meds Admin Complete 03/01/2024 09:31:51 03/01/2024 09:50:21 Discharge Complete 03/01/2024 10:08:27 03/01/2024 10:23:08 03/01/2024 10:23:08 Transfer Complete 03/01/2024 10:23:08 03/01/2024 10:23:08 03/01/2024 10:23:08 ADDRESS: [address] [place] [id number] PHYS DOC NOTES: MEDICAL INFORMATION: Prescriptions Given: New Medications [id number], [address], [place] [phone], [phone] ciprofloxacin ophthalmic (ciprofloxacin Opth 0.3% Adwoa) 2 Drops Ophthalmic every 4 hours for 7 Days. Refills: 0. PATIENT EDUCATION INFORMATION: Instructions: Bacterial Conjunctivitis, Adult, Vbyd-of-Rfpy Follow up: With: Address: When: Hannah Moran [address] [place] [address] [address], [place] [address] Business (1) In 3 days 03/04/2024 Comments: Call to schedule an appointment with the rag washer in the next 2 to 3 days. Use the antibiotic drops as prescribed. Return to the ED with any new or worsening symptoms. DIAGNOSIS: Acute conjunctivitis, right eye Normal [facility] ED Patient Summaryon 024 ED Patient Summary ED Patient Summary [address] [address] Patient Discharge Instructions Person Information Name: BLANCA MEJIA Age: 23 Years [facility]: [id number] Arrival Date: 03/01/2024 08:56:01 Discharge Diagnosis: Acute conjunctivitis, right eye Primary Care Physician: NONE, XXXX Provider Information Primary Provider: Advanced Batter Scaler:Daniela Tolbert PA-C The exam and treatment you received in the Emergency Department were for an urgent problem and are not intended as complete care. It is important that you follow up with a doctor, nurse practitioner, or physician?s assistant statistician for ongoing care. If your symptoms become worse or you do not improve as expected and you are unable to reach your usual health care provider, you should return to the Emergency Department. We are available 24 hours a day. BLANCA MEJIA has been given the following list of patient education materials, prescriptions and follow-up instructions: Follow-up Instructions: With: Address: When: Hannah Moran Huntre [facility] [address] [id number] Business (1) In 3 days 03/04/2024 Comments: Call to schedule an appointment with the rag washer in the next 2 to 3 days. Use the antibiotic drops as prescribed. Return to the ED with any new or worsening symptoms. In the event that this physician does not participate in your insurance network, please consult with your insurance company to find a nearby participating provider. Patient Education Materials: Bacterial Conjunctivitis, Adult, Xkof-wi-Uvki A MESSAGE TO ALL PATIENTS REGARDING OPIOIDS PRESCRIPTION OPIOIDS: WHAT YOU NEED TO KNOW Prescription opioids can be used to help relieve tiuzgubs-ez-ogqili pain and are often prescribed following a surgery or injury, or for certain health conditions. These medications can be an important part of the treatment but also come with serious risks. It is important to work with your healthcare provider to make sure you are getting the safest, most effective care. WHAT ARE THE RISKS AND SIDE EFFECTS OF OPIOID USE? Prescription opioids carry serious risks of addiction and overdose, especially with prolonged use. An opioid overdose, often marked by slowed breathing, can cause sudden . The use of prescription opioids can have a number of side effects as well, even when taken as directed: ? Tolerance?meaning you might need to take more of the medication for the same pain relief ? Physical dependence?meaning you have symptoms of withdrawal when a medication is stopped ? Increased sensitivity to pain ? Constipation ? Nausea, vomiting, and dry mouth ? Sleepiness and dizziness ? Confusion ? Depression ? Low levels of testosterone that can result in lower sex drive, energy, and strength ? Itching and sweating RISKS ARE GREATER WITH: ? History of drug misuse, substance use disorder, or overdose ? Mental health conditions (such as depression or anxiety) ? Sleep apnea ? Older age (65 years and older) ? Avoid alcohol while taking prescription opioids. Also, unless specifically advised by your health care provider, medications to avoid include: ? Benzodiazepines (such as Xanax or Valium) ? Muscle relaxants (such as Soma or Flexeril) ? Hypnotics (such as Ambien or Lunesta) ? Other prescription opioids KNOW YOUR OPTIONS Talk to your health care provider about ways to manage your pain that don?t involve prescription opioids. Some of these options may actually work better and have fewer risks and side effects. Options may include: ? Pain relievers such as acetaminophen, ibuprofen, and naproxen ? Some medication that are also used for depression or seizures ? Physical therapy and exercise ? Cognitive behavioral therapy, a psychological, goal-directed approach, in which patients learn how to modify physical, behavioral, and emotional triggers of pain and stress. IF YOU ARE PRESCRIBED OPIOIDS FOR PAIN: ? Never take opioids in greater amounts or more often than prescribed. ? Follow up with your primary health care provider. o Work together to create a plan on how to manage your pain. o Talk about ways to help manage your pain that don?t involve prescription opioids. o Talk about any and all concerns and side effects. ? Help prevent misuse and abuse o Never sell or share prescription opioids. o Never use another person?s prescription opioids. ? Store prescription opioids in a secure place and out of reach of others (this may include visitors, children, friends, and family). ? Safely dispose of unused prescription opioids: Find your community drug take-back program or your pharmacy mail-back program, or flush them down the toilet, following guidance from the Food and Drug Administration (www.fda.gov/Drugs/Res ourcesForYou). ? Visit www.cdc.gov/drugoverdo se to learn about (more content not included)... Normal [facility] Vital Signs Date Time Vital Sign Value Performing Clinician Facility 03-09-2024 14:05-0400 Body temperature 97.7 [degF] Pablo Oh [facility] 03-09-2024 14:05-0400 Diastolic blood pressure 82 mm[Hg] Pablo Teague [facility] 03-09-2024 14:05-0400 Heart rate 65 /min Pablo Teague [facility] 03-09-2024 14:05-0400 Respiratory rate 16 /min Pablo Teague [facility] 03-09-2024 14:05-0400 SaO2% (BldA) [Mass fraction] 100 % Pablo Teague [facility] 03-09-2024 14:05-0400 Systolic blood pressure 125 mm[Hg] Pablo Teague [facility] 03-09-2024 12:43-0400 Body mass index (BMI) [Ratio] 25.86 kg/m2 Summer Workman PA Work Phone: [facility] 03-09-2024 12:43-0400 Body temperature 98.01 [degF] Summer Workman PA Work Phone: [facility] 03-09-2024 12:43-0400 Body weight 88.91 kg Summer Workman PA Work Phone: [facility] 03-09-2024 12:43-0400 Diastolic blood pressure 70 mm[Hg] Summer Workman PA Work Phone: [facility] 03-09-2024 12:43-0400 Heart rate 89 /min Summer Workman PA Work Phone: [facility] 03-09-2024 12:43-0400 SaO2% (BldA) [Mass fraction] 98 % Summer Workman PA Work Phone: [facility] 03-09-2024 12:43-0400 Systolic blood pressure 110 mm[Hg] Summer Workman PA Work Phone: [facility] 03-01-2024 09:14-0400 Body temperature 97.52 [degF] Martínez Reilly [facility] 03-01-2024 09:14-0400 Diastolic blood pressure 86 mm[Hg] Martínez Grover [facility] 03-01-2024 09:14-0400 Heart rate 59 /min Martínez Grover [facility] 03-01-2024 09:14-0400 Respiratory rate 17 /min Martínez Grover [facility] 03-01-2024 09:14-0400 SaO2% (BldA) [Mass fraction] 100 % Martínez Grover [facility] 03-01-2024 09:14-0400 Systolic blood pressure 132 mm[Hg] Martínez Grover [facility] 11-23-2021 16:40-0400 Body height 182.88 cm PHYSICIAN NO [facility] 11-23-2021 16:40-0400 Body mass index (BMI) [Ratio] 29.2 kg/m2 PHYSICIAN NO [facility] 11-23-2021 16:40-0400 Body temperature 97.7 [degF] PHYSICIAN NO [facility] 11-23-2021 16:40-0400 Body weight 98 kg PHYSICIAN NO [facility] 11-23-2021 16:40-0400 Diastolic blood pressure 83 mm[Hg] PHYSICIAN NO [facility] 11-23-2021 16:40-0400 Heart rate 68 /min PHYSICIAN NO [facility] 11-23-2021 16:40-0400 Respiratory rate 18 /min PHYSICIAN NO [facility] 11-23-2021 16:40-0400 SaO2% (BldA) [Mass fraction] 99 % PHYSICIAN NO [facility] 11-23-2021 16:40-0400 Systolic blood pressure 137 mm[Hg] PHYSICIAN NO [facility] Encounters Encounter Date Encounter Type Care Provider Facility Start: 07-03-2024 End: 07-03-2024 ambulatory [facility] Start: 05-23-2024 End: 05-23-2024 ambulatory [facility] Facility:[facility] Start: 03-13-2024 End: 03-13-2024 Bamboo flowsheet Hannah Moran MD Work Phone: [facility] Start: 03-13-2024 End: 03-13-2024 Bamboo flowsheet Hannah Moran MD Work Phone: [facility] Start: 03-13-2024 End: 03-13-2024 ambulatory HANNAH MORAN Not Available Start: 03-13-2024 End: 03-13-2024 Office outpatient new 45 minutes Hannah Moran MD Work Phone: [facility] Comment on above: Uveitis, anterior (P rimary Dx) Start: 03-09-2024 End: 03-09-2024 Emergency department patient visit Pablo Teague [facility] Start: 03-09-2024 End: 03-09-2024 ambulatory JUANITA M WORKMAN Not Available Start: 03-09-2024 End: 03-09-2024 Office outpatient new 20 minutes Summer M Workman PA Work Phone: [facility] Comment on above: Acute right eye pain (Primary Dx); Blurry vision, right eye Start: 03-01-2024 End: 03-01-2024 Emergency department patient visit Martínez Grover [facility] Start: 11-23-2021 End: 11-23-2021 Emergency department patient visit PHYSICIAN GERARD [facility] Procedures Date Procedure Procedure Detail Performing Clinician Start: 09-13-2017 Pilonidal cyst with abscess (disorder) Martínez Grover Comment on above: Excision of pilonida l cyst in midline Start: 09-13-2009 Open reduction of fr acture with internal fixation Martínez Grover Comment on above: left wrist Start: 08-07-2005 Adenoid excision Martínez salmon Comment on above: surgery was done gibson e time as tonsillectomy Start: 08-07-2005 History of tonsillectomy Martínez Grover Start: 05-20-2003 Hydrocelectomy Martínez brown Comment on above: right Start: 09-18-2002 kidney 5 Martínez Grover Comment on above: 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 Work Phone: Immunizations Immunization Date Immunization Notes Care Provider Fa beka 11-23-2021 tetanus toxoid, redu shar diphtheria toxoid, and acellular pertussis vaccine, adsorbed PHYSICIAN NO [facility] Payers Date Payer Category Payer Unknown [id number] 2022 Unknown [id number] 2000 Unknown [id number] 2000 Unknown [id number] 2000 Unknown [id number] [id number] 2000 Unknown [id number] [id number] 1966 Unknown [id number] [id number] Self-pay Self Pay [id number] Social History Date Type Detail Facility Start: 11-23-2021 Tobacco smoking status NHIS Never smoked tobacco (finding) [facility] Start: 2000 Sex Assigned At Male [facility] Tobacco smoking status No Smoking Status Entered [facility] Sex Assigned At Male [facility] Tobacco smoking status CTIS Tobacco smoking consumption unknown [facility] Start: 2000 Sex assigned at Not on file [facility] Functional Status Date Assessment Result Facility 03-09-2024 Functional Status N/A [facility] 03-01-2024 Functional Status N/A [facility] Clinical Notes 11-23-2021 to 07-03-2024 VINOD Moses - 03/13/2024 1:15 PM EDTHannah Moran MD - 03/13/2024 1:15 PM EDT Note Date & Type Note Facility 07-03-2024 Note [place] [facility] - [facility] Subjective Blanca Mejia is a 23 y.o. year old male patient being seen to establish care. He presented to [facility] ED 2 days ago for palpitations. The physician in the ED wanted him to see cardiology for concerns of HOCM per ECG. 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 He smokes 1/2 PPD and vapes. Patient Active Problem List Diagnosis Pilonidal cyst Family History Problem Relation Name Age of Onset Atrial fibrillation Mother Heart attack Mother's Sister 42 Atrial fibrillation Maternal Grandmother Other (CABG) Maternal Grandfather Social History Tobacco Use Smoking status: Every Day Current packs/day: 0.50 Types: Cigarettes Smokeless tobacco: Current Substance Use Topics Alcohol use: Yes Comment: occasional HPI He is seen as a new patient for evaluation of recent chest pain, shortness of breath and palpitations. He is a 23-year-old man with no prior cardiac history. 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 He used to see a pediatric neurologist in the past. Recently he was evaluated in the emergency room after having an episode of palpitations, chest pain and shortness of breath while lifting a box at work. He reports the chest pain as pressure in the chest. The symptoms resolved after he sat down for several minutes. Following that he did develop a sensation of weakness. He was evaluated in the emergency room. His ECG showed sinus rhythm with Q waves in the inferior leads. His troponin was negative. He underwent a chest x-ray that was within normal limits. His creatinine was elevated. He was recommended evaluation in the cardiology clinic. He reports that he has had similar symptoms of palpitations that happen every several weeks. Usually he does not get short of breath with exertion. Typically he does not feel any symptoms of chest pain with exertion. He does not have leg swelling. He does not take any medications currently. Review of Systems Cardiovascular: Positive for chest pain, dyspnea on exertion and palpitations. Neurological: Positive for light-headedness. Objective Visit Vitals BP 116/76 (BP Location: Right arm, Patient Position: Sitting) Pulse 70 Ht 1.854 m (6' 1 ) Wt 104 kg (230 lb) SpO2 97% BMI 30.34 kg/m??? Smoking Status Every Day BSA 2.31 m??? Physical Exam Constitutional: Appearance: He is well-developed. He is not ill-appearing. HENT: Head: Normocephalic and atraumatic. Nose: Nose normal. Eyes: General: No scleral icterus. Pupils: Pupils are equal, round, and reactive to light. Neck: Thyroid: No thyromegaly. Vascular: No JVD. Cardiovascular: Rate and Rhythm: Normal rate and regular rhythm. Pulses: Radial pulses are 2+ on the right side and 2+ on the left side. Dorsalis pedis pulses are 2+ on the right side and 2+ on the left side. Heart sounds: Normal heart sounds. No murmur heard. No friction rub. No gallop. Pulmonary: Effort: Pulmonary effort is normal. No respiratory distress. Breath sounds: Normal breath sounds. No wheezing or rales. Chest: Chest wall: No tenderness. Abdominal: General: Bowel sounds are normal. There is no distension. Palpations: Abdomen is soft. Tenderness: There is no abdominal tenderness. Musculoskeletal: General: No swelling. Cervical back: Neck supple. Skin: General: Skin is warm and dry. Neurological: General: No focal deficit present. Mental Status: He is alert and oriented to person, place, and time. Psychiatric: Mood and Affect: Mood normal. Behavior: Behavior is cooperative. Judgment: Judgment normal. Allergies No Known Allergies Medications No current outpatient medications on file. Recent Labs Blood testing 06/30/2024: Hemoglobin 16.3, platelets 237, potassium 3.8, BUN 15, creatinine 1.35, EGFR more than 60, high-sensitivity troponin less than 4.0. Imaging and other tests ECG 06/30/2024: Sinus rhythm, moderate right axis deviation. Narrow Q waves are seen in the inferior leads. Chest x-ray 06/30/2024: Unremarkable chest. ECG 07/03/2024: Normal sinus rhythm with sinus arrhythmia, possible lateral infarct, age undetermined. Narrow QRS waves seen in the inferior leads. Assessment/Plan Diagnoses and all orders for this visit: Palpitations - Transthoracic echo (TTE) complete; Future - ECG 12 lead unit performed - Routine Stress (Treadmill Only); Future - Cardiac event monitor; Future Other chest pain - Routine Stress (Treadmill Only); Future Abnormal EKG - Cardiac event monitor; Future Abnormal blood creatinine level - Ambulatory referral to Nephrology; Future I had a long discussion with Blanca and his parents regarding the above symptoms. His palpitations have been happening on and off once every few weeks. His ECG was abnormal showing Q waves in the inferior and also in the lateral leads. I am going to investigate by an echocardiogram given ga (more content not included)... [facility] 03-13-2024 History of Presen t illness Narrative Images from the original note were not included. Assessment/Plan Assessment/Plan begin Pred acetate q2 documented in this encounter [facility] 03-09-2024 Hospital Discharg e instructions Patient Education 03/09/2024 16:02:06 Bacterial Conjunctivitis, Adult, Wsdb-ys-Evco Bacterial Conjunctivitis, Adult Bacterial conjunctivitis is an infection of your conjunctiva. This is the clear membrane that covers the white part of your eye and the inner part of your eyelid. This infection can make your eye: Red or pink. Itchy or irritated. This condition spreads easily from person to person (is contagious) and from one eye to the other eye. What are the causes? This condition is caused by germs (bacteria). You may get the infection if you come into close contact with: A person who has the infection. Items that have germs on them (are contaminated), such as face towels, contact lens solution, or eye makeup. What increases the risk? You are more likely to get this condition if: You have contact with people who have the infection. You wear contact lenses. You have a sinus infection. You have had a recent eye injury or surgery. You have a weak body defense system (immune system). You have dry eyes. What are the signs or symptoms? Thick, yellowish discharge from the eye. Tearing or watery eyes. Itchy eyes. Burning feeling in your eyes. Eye redness. Swollen eyelids. Blurred vision. How is this treated? Antibiotic eye drops or ointment. Antibiotic medicine taken by mouth. This is used for infections that do not get better with drops or ointment or that last more than 10 days. Cool, wet cloths placed on the eyes. Artificial tears used 2 6 times a day. Follow these instructions at home: Medicines Take or apply your antibiotic medicine as told by your doctor. Do not stop using it even if you start to feel better. Take or apply wppx-mkn-bokrqpy and prescription medicines only as told by your doctor. Do not touch your eyelid with the eye-drop bottle or the ointment tube. Managing discomfort Wipe any fluid from your eye with a warm, wet washcloth or a cotton ball. Place a clean, cool, wet cloth on your eye. Do this for 10 20 minutes, 3 4 times a day. General instructions Do not wear contacts until the infection is gone. Wear glasses until your doctor says it is okay to wear contacts again. Do not wear eye makeup until the infection is gone. Throw away old eye makeup. Change or wash your pillowcase every day. Do not share towels or washcloths. Wash your hands often with soap and water for at least 20 seconds and especially before touching your face or eyes. Use paper towels to dry your hands. Do not touch or rub your eyes. Do not drive or use heavy machinery if your vision is blurred. Contact a doctor if: You have a fever. You do not get better after 10 days. Get help right away if: You have a fever and your symptoms get worse all of a sudden. You have very bad pain when you move your eye. Your face: ?Hurts. ?Is red. ?Is swollen. You have sudden loss of vision. Summary Bacterial conjunctivitis is an infection of your conjunctiva. This infection spreads easily from person to person. Wash your hands often with soap and water for at least 20 seconds and especially before touching your face or eyes. Use paper towels to dry your hands. Take or apply your antibiotic medicine as told by your doctor. Contact a doctor if you have a fever or you do not get better after 10 days. This information is not intended to replace advice given to you by your health care provider. Make sure you discuss any questions you have with your health care provider. Document Revised: 08/31/2021 Document Reviewed: 08/31/2021 [facility] Patient Education 2023 [employer]. Follow Up Care 03/09/2024 14:02:26 With:Ulises Campbell Address: [facility] [address], [place] [phone]- Business (1) When:03/12/2024 15:38:22 [facility] 03-09-2024 Note ED Patient Education Note Infectious Disease Bacterial Conjunctivitis, Adult Bacterial conjunctivitis is an infection of your conjunctiva. This is the clear membrane that covers the white part of your eye and the inner part of your eyelid. This infection can make your eye: ? Red or pink. ? Itchy or irritated. This condition spreads easily from person to person (is contagious) and from one eye to the other eye. What are the causes? This condition is caused by germs (bacteria). You may get the infection if you come into close contact with: ? A person who has the infection. ? Items that have germs on them (are contaminated), such as face towels, contact lens solution, or eye makeup. What increases the risk? You are more likely to get this condition if: ? You have contact with people who have the infection. ? You wear contact lenses. ? You have a sinus infection. ? You have had a recent eye injury or surgery. ? You have a weak body defense system (immune system). ? You have dry eyes. What are the signs or symptoms? ? Thick, yellowish discharge from the eye. ? Tearing or watery eyes. ? Itchy eyes. ? Burning feeling in your eyes. ? Eye redness. ? Swollen eyelids. ? Blurred vision. How is this treated? ? Antibiotic eye drops or ointment. ? Antibiotic medicine taken by mouth. This is used for infections that do not get better with drops or ointment or that last more than 10 days. ? Cool, wet cloths placed on the eyes. ? Artificial tears used 2?6 times a day. Follow these instructions at home: Medicines ? Take or apply your antibiotic medicine as told by your doctor. Do not stop using it even if you start to feel better. ? Take or apply qnms-ohw-guqacud and prescription medicines only as told by your doctor. ? Do not touch your eyelid with the eye-drop bottle or the ointment tube. Managing discomfort ? Wipe any fluid from your eye with a warm, wet washcloth or a cotton ball. ? Place a clean, cool, wet cloth on your eye. Do this for 10?20 minutes, 3?4 times a day. General instructions ? Do not wear contacts until the infection is gone. Wear glasses until your doctor says it is okay to wear contacts again. ? Do not wear eye makeup until the infection is gone. Throw away old eye makeup. ? Change or wash your pillowcase every day. ? Do not share towels or washcloths. ? Wash your hands often with soap and water for at least 20 seconds and especially before touching your face or eyes. Use paper towels to dry your hands. ? Do not touch or rub your eyes. ? Do not drive or use heavy machinery if your vision is blurred. Contact a doctor if: ? You have a fever. ? You do not get better after 10 days. Get help right away if: ? You have a fever and your symptoms get worse all of a sudden. ? You have very bad pain when you move your eye. ? Your face: ? Hurts. ? Is red. ? Is swollen. ? You have sudden loss of vision. Summary ? Bacterial conjunctivitis is an infection of your conjunctiva. ? This infection spreads easily from person to person. ? Wash your hands often with soap and water for at least 20 seconds and especially before touching your face or eyes. Use paper towels to dry your hands. ? Take or apply your antibiotic medicine as told by your doctor. ? Contact a doctor if you have a fever or you do not get better after 10 days. This information is not intended to replace advice given to you by your health care provider. Make sure you discuss any questions you have with your health care provider. Document Revised: 08/31/2021 Document Reviewed: 08/31/2021 [facility] Patient Education ? 2023 [employer]. [facility] 03-09-2024 Evaluation + Plan note Extrac yissel from: Title:ED Note Author:Angela Connell PA-C . Date:03/09/24 1. Conjunctivitis of right e ye (H10.9: Unspecified conjunctivitis) Orders: bacitracin/neomycin/polymyxin B ophthalmic, 1 rupinder, Ointment, OPTH, Once, Stop date 03/09/24 15:37:00 EDT, STAT, Start date 03/09/24 15:37:00 EDT fluorescein ophthalmic, 1 mg, 1 EA, Test, OPTH, Once, Stop date 03/09/24 14:13:00 EDT, STAT, Start date 03/09/24 14:13:00 EDT tetracaine ophthalmic, 2 drop(s), Soln-Opth, Eye-Right, Once, Stop date 03/09/24 14:13:00 EDT, STAT, Start date [facility]/09[facility] History of Present illness Narrative* Juanita Fuentes AlexsandermandiREMINGTON - 03/09/2024 12:40 PM EDT HPI: Historian of HPI: patient Blanca Mejia is a 23 y.o. male who presents today to the Urgent Care with the following ophthalmology complaints and denials which have been present for 1 week(s) and affecting right eye(s) C/O Denies Symptom Comments [x] [] Red eye [x] [] Eye swelling [] [x] Eye itching [] [x] FB sensation [x] [] Blurry vision [] [x] Double vision [] [x] auras [] [x] drainage [] [x] Crusting in the morning [x] [] Burning sensation [x] [] pain Additional Comments: Pt states he went to [facility] ER last Sunday for pink eye and was given eyedrops and has not improved. Pt stats he has been getting the sniffles too . Pt c/o light sensitivity and blurry vision at times, worse in the morning. Pt is still using the eye drops he was given in the ER. Pt states it looks like there is a stye in his upper eyelid. Pt states his eye was lit up and looked at in the ER and they didn't see any thing . ROS: A complete system ROS was performed and negative aside from the pertinent positives noted in the HPI and PE. Physical Exam General Examination: alert, oriented, normal affect, well-appearing, in no acute distress, well developed, well nourished. Head: normocephalic, atraumatic Eyes: PERRLA. EOMI, sclera on right severe injected, upper and lower eyelids mildly edematous with erythema, pain on EOM movements Extremities: no edema, no cyanosis Psych: alert, oriented, cognitive function intact, cooperative with exam. Assessment/Plan 1. Acute right eye pain Discussed ddx for his right eye pain, blurry vision, headache behind eye without improvement after being on drops x 1 week I feel he needs immediate eval and treatment by ophthalmology, therefore he was sent to ER. He and his significant other was present during exam and both agreed with plan. 2. Blurry vision, right eye See above. documented in this encounterCox [id number] Hospital Discharge instructions Patient Education 03/01/2024 10:08:31 Bacterial Conjunctivitis, Adult, [id number] Bacterial Conjunctivitis, Adult Bacterial conjunctivitis is an infection of your conjunctiva. This is the clear membrane that covers the white part of your eye and the inner part of your eyelid. This infection can make your eye: Red or pink. Itchy or irritated. This condition spreads easily from person to person (is contagious) and from one eye to the other eye. What are the causes? This condition is caused by germs (bacteria). You may get the infection if you come into close contact with: A person who has the infection. Items that have germs on them (are contaminated), such as face towels, contact lens solution, or eye makeup. What increases the risk? You are more likely to get this condition if: You have contact with people who have the infection. You wear contact lenses. You have a sinus infection. You have had a recent eye injury or surgery. You have a weak body defense system (immune system). You have dry eyes. What are the signs or symptoms? Thick, yellowish discharge from the eye. Tearing or watery eyes. Itchy eyes. Burning feeling in your eyes. Eye redness. Swollen eyelids. Blurred vision. How is this treated? Antibiotic eye drops or ointment. Antibiotic medicine taken by mouth. This is used for infections that do not get better with drops or ointment or that last more than 10 days. Cool, wet cloths placed on the eyes. Artificial tears used 2 6 times a day. Follow these instructions at home: Medicines Take or apply your antibiotic medicine as told by your doctor. Do not stop using it even if you start to feel better. Take or apply olaj-mql-bcocrzq and prescription medicines only as told by your doctor. Do not touch your eyelid with the eye-drop bottle or the ointment tube. Managing discomfort Wipe any fluid from your eye with a warm, wet washcloth or a cotton ball. Place a clean, cool, wet cloth on your eye. Do this for 10 20 minutes, 3 4 times a day. General instructions Do not wear contacts until the infection is gone. Wear glasses until your doctor says it is okay towear contacts again. Do not wear eye makeup until the infection is gone. Throw away old eye makeup. Change or wash your pillowcase every day. Do not share towels or washcloths. Wash your hands often with soap and water for at least 20 seconds and especially before touching your face or eyes. Use paper towels to dry your hands. Do not touch or rub your eyes. Do not drive or use heavy machinery if your vision is blurred. Contact a doctor if: You have a fever. You do not get better after 10 days. Get help right away if: You have a fever and your symptoms get worse all of a sudden. You have very bad pain when you move your eye. Your face: ?Hurts. ?Is red. ?Is swollen. You have sudden loss of vision. Summary Bacterial conjunctivitis is an infection of your conjunctiva. This infection spreads easily from person to person. Wash your hands often with soap and water for at least 20 seconds and especially before touching your face or eyes. Use paper towels to dry your hands. Take or apply your antibiotic medicine as told by your doctor. Contact a doctor if you have a fever or you do not get better after 10 days. This information is not intended to replace advice given to you by your health care provider. Make sure you discuss any questions you have with your health care provider. Document Revised: 08/31/2021 Document Reviewed: 08/31/2021 [facility] Patient Education 2023 [employer]. Follow Up Care 03/01/2024 08:57:04 With:Hannah Moran Address: [address] [place], [place] [id number]- Business (1) When:03/04/2024 10:08:12 Comments:Call to schedule an appointment with the rag washer in the next 2 to 3 days. Use the antibiotic drops as prescribed. Return to the ED with any new or worsening symptoms. [facility] 09-28-2024 NoteED Patient Education Note Infectious Disease Bacterial Conjunctivitis, Adult Bacterial conjunctivitis is an infection of your conjunctiva. This is the clear membrane that covers the white part of your eye and the inner part of your eyelid. This infection can make your eye: ? Red or pink. ? Itchy or irritated. This condition spreads easily from person to person (is contagious) and from one eye to the other eye. What are the causes? This condition is caused by germs (bacteria). You may get the infection if you come into close contact with: ? A person who has the infection. ? Items that have germs on them (are contaminated), such as face towels, contact lens solution, or eye makeup. What increases the risk? You are more likely to get this condition if: ? You have contact with people who have the infection. ? You wear contact lenses. ? You have a sinus infection. ? You have had a recent eye injury or surgery. ? You have a weak body defense system (immune system). ? You have dry eyes. What are the signs or symptoms? ? Thick, yellowish discharge from the eye. ? Tearing or watery eyes. ? Itchy eyes. ? Burning feeling in your eyes. ? Eye redness. ? Swollen eyelids. ? Blurred vision. How is this treated? ? Antibiotic eye drops or ointment. ? Antibiotic medicine taken by mouth. This is used for infections that do not get better with dropsor ointment or that last more than 10 days. ? Cool, wet cloths placed on the eyes. ? Artificial tears used 2?6 times a day. Follow these instructions at home: Medicines ? Take or apply your antibiotic medicine as told by your doctor. Do not stop using it even if you start to feel better. ? Take or apply aega-gdg-lspmzfj and prescription medicines only as told by your doctor. ? Do not touch your eyelid with the eye-drop bottle or the ointment tube. Managing discomfort ? Wipe any fluid from your eye with a warm, wet washcloth or a cotton ball. ? Place a clean, cool, wet cloth on your eye. Do this for 10?20 minutes, 3?4 times a day. General instructions ? Do not wear contacts until the infection is gone. Wear glasses until your doctor says it is okay to wear contacts again. ? Do not wear eye makeup until the infection is gone. Throw away old eye makeup. ? Change or wash your pillowcase every day. ? Do not share towels or washcloths. ? Wash your hands often with soap and water for at least 20 seconds and especially before touching your face or eyes. Use paper towels to dry your hands. ? Do not touch or rub your eyes. ? Do not drive or use heavy machinery if your vision is blurred. Contact a doctor if: ? You have a fever. ? You do not get better after 10 days. Get help right away if: ? You have a fever and your symptoms get worse all of a sudden. ? You have very bad pain when you move your eye. ? Your face: ? Hurts. ? Is red. ? Is swollen. ? You have sudden loss of vision. Summary ? Bacterial conjunctivitis is an infection of your conjunctiva. ? This infection spreads easily from person to person. ? Wash your hands often with soap and water for at least 20 seconds and especially before touching your face or eyes. Use paper towels to dry your hands. ? Take or apply your antibiotic medicine as told by your doctor. ? Contact a doctor if you have a fever or you do not get better after 10 days. This information is not intended to replace advice given to you by your health care provider. Make sure you discuss any questions you have with your health care provider. Document Revised: 08/31/2021 Document Reviewed: 08/31/2021 [facility] Patient Education ? 2023 [employer].[facility] 11-23-2021 Hospital Discharge instructions Additional Instructions sutures can be removed 7 to 10 days Keep it clean do not soak but wash daily soap and water anytime it becomes dirty Apply antibiotic ointment and a clean dressing twice a day Do not use peroxide or alcohol to clean it Take Tylenol or ibuprofen as needed for discomfort Get seen sooner if there is any redness swelling purulent drainage fever chills or any other [facility] Work Phone: Evaluation + Plan note No data available for this section [facility] Evaluation noteNo assessment information available [facility] Work Phone: Evaluation note* Diagnosis Acute right eye pain- Primary Blurry vision, right eye Other specified visual disturbances documented in this encounter [facility]* Diagnosis Uveitis, anterior- Primary Unspecified iridocyclitis documented in this encounter [facility] No data available for this section [facility] Chief Complaint and Reason for Visit Chief Complaint R palm lac Family History No Family History Records Found Relationship Condition Age at Onset Recorded Date/T yelena father Malignant neoplasm of colon Unknown grandparent Malignant neoplasm of colon Unknown Advance Directives No Advanced Directives Records Found Advance Directive Response Recorded Date/ Time Advance Directives No March 30, 2017 12:57pm Summary Purpose Additional Source Comments Care Teams (unrecognized sec tion and content) Team Status: Inactive Member Role Status Dates PHYSICIAN NO FAMILY Primary Care Provider Active BING LovelaceP- Emergency Provider Active Team Status: Active Member Role Status Dates PHYSICIAN NO FAMILY Primary Care Provider Active Goals (unrecognized section and content) Goals may be documented in a n alternate section No data available for this section No data available for this section (unrecognized sect ion and content) No Status Records FoundNo Status Records FoundNo Status Records Found INFORMATION SOURCE (unrecogn ized section and content) DATE CREATED AUTHOR 03/15/2024 [facility] DATE CREATED AUTHOR AUTHOR'S ORGANIZ ATION 05/27/2024 [facility] DATE CREATED AUTHOR AUTHOR'S ORGANIZ ATION 07/05/2024 [facility] Reason for Visit (unrecogniz ed section and content) Reason Comments Eye Pain Conjunctivitis FOR RECORDS PERTAINING TO PATIENTS WHO ARE OR HAVE BEEN ENROLLED IN A CHEMICAL DEPENDENCY/SUBSTANCEABUSE PROGRAM, SOME INFORMATION MAY BE OMITTED. This clinical summary was aggregated from multiple sources. Caution should be exercised in using it in the provision of clinical care. This summary normalizes information from multiple sources, and as a consequence, information in this document may materially change the coding, format and clinical context of patient data. In addition, data may be omitted in some cases. CLINICAL DECISIONS SHOULD BE BASED ON THE PRIMARY CLINICAL RECORDS. [employer] provides no warranty or guarantee of the accuracy or completeness of information in this document.
--- NOTE | 2024-07-22 08:30 | CA_ITS ---
Patient Name: BLANCA MADERA MR#: [id number] : 2000 Exam Date: 07/22/2024 Ordering Doctor: DR YARITZA LAUREN M.D. ECHOCARDIOGRAM REPORT PROCEDURE: CA ECHO DOPPLER COMPLETE INDICATIONS: Palpitations, Chest pain COMPARISON: None. DESCRIPTION: COMPLETE ECHOCARDIOGRAM Real-time transthoracic echocardiography with 2D, M-mode, spectral and color flow Doppler performed. QUALITY: Technical quality was good. LEFT VENTRICLE: Normal chamber size. Normal left ventricular wall thickness. LV EF: Global left ventricular systolic function is normal. Calculated left ventricular ejection fraction is 62%. No significant wall motion abnormalities. DIASTOLIC: Normal diastolic function. ATRIAL SEPTUM: Aneurysmal atrial septum. No evidence of intra-atrial shunt. LEFT ATRIUM: Mild dilatation. RIGHT ATRIUM: Mild dilatation. RIGHT VENTRICLE: Normal chamber size. Normal right ventricular systolic function. TRICUSPID VALVE: Normal mobility and thickness. No stenosis with mild regurgitation. No evidence of pulmonary hypertension. RVSP 24mmHg MITRAL VALVE: Normal mobility and thickness. No evidence of mitral valve stenosis. There is no mitral annular calcification. Trivial mitral regurgitation. AORTIC VALVE: Normal trileaflet appearance. No visible sclerosis. Normal leaflet mobility. No evidence of aortic valve stenosis. No aortic regurgitation. AORTIC ROOT: Normal diameter and appearance. PULMONIC VALVE: Normal thickness and mobility. No stenosis.Trivial regurgitation. PERICARDIUM: No evidence of pericardial effusion. IVC: Collapses with inspirations. Normal size. CONCLUSION: 1. Global left ventricular systolic function is normal; visually estimated ejection fraction is 60 to 65% 2. Normal right ventricular size and systolic function 3. Normal diastolic function 4. Biatrial dilatation 5. No significant valvular abnormalities Adult Echocardiography Procedure Report Left Ventricle LVEDD (3.7 - 5.6 cm): 5.37 cm LVESD (2.2 - 4.0 cm): 3.34 cm LVIVS thickness (0.6 - 1.2 cm): 0.93 cm LVPW thickness (0.5 - 1.0 cm): 0.90 cm e': 0.14 m/s E - e': 4.30 LVOT Max Gradient: 4.73 mm[Hg] LVOT Area (cm2): 1.09 m/s Peak Velocity (LVOT): 1.09 m/s Mean Velocity (LVOT): 0.76 m/s LVOT Diameter 2.40 cm Left Atrium LA Volume Index (2D A2C): 39.00 ml/m2 Left Atrium Systolic Dimension: 4.45 cm Mitral Valve MV E to A Ratio: 1.34 Mitral Valve A-Wave Peak Velocity: 0.46 m/s Mitral Valve E-Wave Peak Velocity: 0.62 m/s Right Ventricle RV Internal Diastolic Dimension: 3.46 cm Aorta AO Root Diam: 3.33 cm Ascending Ao Diam: 2.59 cm Aortic Valve AoV Area (Peak Reggie): 4.51 cm2, 4.51 cm2 AoV Area (VTI): 3.85 cm2, 3.85 cm2 Peak Velocity(Antegrade Flow): 1.09 m/s Peak Gradient(Antegrade Flow): 4.78 mm[Hg] Mean Velocity(Antegrade Flow): 0.73 m/s Mean Gradient(Antegrade Flow): 2.50 mm[Hg] Velocity Time Integral: 27.30 cm Tricuspid Valve Peak Velocity (Regurgitant Flow): 2.05 m/s, 2.30 m/s, 2.33 m/s Pulmonic Valve Mean Gradient: 2.47 mm[Hg], 2.58 mm[Hg] Mean Velocity: 0.72 m/s, 0.74 m/s Peak Velocity: 1.11 m/s Peak Gradient: 4.75 mm[Hg], 5.11 mm[Hg] Right Atrium Right Atrium Systolic Pressure: 93.01 ml, 93.01 ml Dictated by: Emily Rice M.D. on 07/22/2024 at 13:21 Approved by: Emily Rice M.D. on 07/22/2024 at 13:25
--- NOTE | 2024-07-22 10:00 | PC.NURSE ---
Nursing Note Cardiac Stress Test Reviewed: Medication, allergies and patient history reviewed. Stress Test: [x] Patient tolerated stress test well. [ ] Patient unable to tolerate walking on treadmill. Switched to Lexiscan stress test. [ x] No chest pain noted per patient [ ] Chest pain that resolved prior to leaving stress lab. [ ] No dyspnea noted. [x ] Dyspnea that resolved prior to leaving stress lab. [x ] Patient left stress lab asymptomatic and hemodynamically stable. [ ] Patient taken to the Emergency Room due to non-resolving symptoms following stress test. [ x] Patient achieved target heart rate. [ ] Patient unable to achieve target heart rate. [ ] Aminophylline administered as reversal agent to Lexiscan (Regadenoson). [ ] Nitro administered. Nursing Comments:Pt had regular TM stress test done. Tolerated well. NO CP no palpitations. Dyspnea noted that pt states is normal for him with activity. NO symptoms when pt left stress lab.
== END 2024-07-22 08:10 | disposition home or self-care (01) ==
LOC: CARD 08:10
PROVIDERS: Visit Provider Internal Medicine Interventional Cardiology
DX: R00.2 Palpitations (principal); R07.89 Other chest pain
CPT/HCPCS: 93017; 93306

== ENCOUNTER 2025-05-11 11:43 | Emergency (ER) | payer OTHER, SELFPAY ==
[2025-05-11 11:46] VITALS: BP 144/87; PULSE 61; TEMP 36.3; O2SAT 100; BMI 27.1
[2025-05-11 12:00] LABS: Glucose Urine UA NEGATIVE (NEGATIVE)
--- NOTE | 2025-05-11 12:16 | ED_ITS ---
HPI - Male Genitourinary General Chief complaint: Urogenital-Male Stated complaint: URINARY ISSUES, LOWER ABDOMINAL PAIN Time Seen by Provider: 05/11/25 11:54 Source: patient Mode of arrival: walk-in Limitations: no limitations History of Present Illness HPI Narrative: The patient is a 24-year-old male presenting to the ER with burning with urination as well as frequency he denies any discharge or any blood in urine he also denies any history of sexual transmitted infection, patient is sexually active Is not clear if he used protection or not at the patient was not clear about that The patient denies any other concerns Related Data Previous Rx's ?Medication ?Instructions ?Recorded doxycycline hyclate 100 mg tablet 100 mg PO BID 7 days #14 tabs 05/11/25 Allergies Allergy/AdvReac Type Severity Reaction Status Date / Time No Known Drug Allergies Allergy Verified 06/30/24 22:59 Review of Systems ROS Status of ROS 10 or more systems reviewed and unremark able except as noted in history and below PFSH PFSH Social History Little interest or pleasure in doing things: not at all Feeling down, depressed, or hopeless: not at all Exam Narrative Exam Narrative: Nurses notes and vital signs reviewed and patient is not hypoxic. General: Well-appearing and in no apparent distress. Skin: Warm, dry, no pallor noted. No rash. Head: Normocephalic, atraumatic. Neck: Supple, non-tender. GI: Abdomen is soft, non-distended. Normal bowel sounds. No masses appreciated. No tenderness to palpation. No rebound, guarding, or rigidity noted. Neurological: A&O x4. No cranial nerve dysfunction observed. No truncal ataxia. Moves all extremities. Sensation intact. Psychiatric: Cooperative and interactive. Normal mood and affect. Constitutional Vital Signs, click to edit/add: Last Vital Signs Temp 97.4 F L 05/11/25 11:46 Pulse 61 05/11/25 11:46 BP 144/87 H 05/11/25 11:46 Pulse Ox 100 05/11/25 11:46 O2 Del Method Room Air 05/11/25 11:46 Course Vital Signs Vital signs: Vital Signs Temperature 97.4 F L 05/11/25 11:46 Pulse Rate 61 05/11/25 11:46 Blood Pressure 144/87 H 05/11/25 11:46 Pulse Oximetry 100 05/11/25 11:46 Oxygen Delivery Method Room Air 05/11/25 11:46 Temperature 97.4 F L 05/11/25 11:46 Pulse Rate 61 05/11/25 11:46 Blood Pressure 144/87 H 05/11/25 11:46 Pulse Oximetry 100 05/11/25 11:46 Oxygen Delivery Method Room Air 05/11/25 11:46 MDM - Male Genitourinary MDM Narrative Medical decision making narrative: Patient presentation is mostly secondary arthritis in a 60 active male the patient urinalysis showed no urinary tract infection The patient urine was sent for chlamydia gonorrhea testing and he was treated with ceftriaxone as well as doxycycline The patient to follow-up with the primary care within 2 to 3 days and to come back to the ER in case of any worsening of the current symptoms or any new symptoms or concerns Lab Data Labs: Lab Results 05/11/25 Range/Units 11:53 Urine Color Lt. yellow (YELLOW) Urine Clarity Clear (CLEAR) Urine pH 7.0 (5.0-9.0) Ur Specific [place] 1.015 (1.005-1.025) Urine Protein Negative (NEG/TRACE) mg/dL Urine Glucose (UA) Negative (NEGATIVE) mg/dL Urine Ketones Negative (NEGATIVE) mg/dL Urine Occult Blood Negative (NEGATIVE) Urine Nitrite Negative (NEGATIVE) Urine Bilirubin Negative (NEGATIVE) Urine Urobilinogen 1.0 (0.2-1.0) EU/dL Ur Leukocyte Esterase Negative (NEGATIVE) Discharge Plan Discharge Chief Complaint: Urogenital-Male Clinical Impression: Urethritis Patient Disposition: Home, Self-Care Time of Disposition Decision: 12:17 Condition: Good Prescriptions / Home Meds: New doxycycline hyclate 100 mg tablet 100 mg PO BID 7 Days Qty: 14 0RF Print Language: Bangladeshi Instructions: Urethritis (ED) Referrals: Physician,Non-Staff, MD [Primary Care Provider] - 1 week Discharge Date/Time: 05/11/25 12:43
--- OUTSIDE RECORDS SUMMARY | 2025-05-11 12:33 | XMS_ITS | CCD ---
Author Organization [facility] Inform ion Partnership [facility] Care Team Providers Care Bb Shot Packer Name Role Phone NO FAMILY, PHYSICIAN Primary Care Provider Unava herman Ennis, NATURAL RESOURCE OFFICER-BC Marlene Langford Emergency Provider NONE, XXXX Primary Care Physician Unavailab JUANITA Longo Attending Unavailable HANNAH MORAN Attending Unavailable Unavailable Primary Care Provider UnavailYARITZA Massey Attending Unavailable ALPESH MANZANO Attending Unavailable Martínez Grover Attending Unavailable Cosme Latif Attending Unavailable Surekha Angela Attending Unavailable Nathaniel OROZCO Attending Unavailable Pablo Teague Attending Unavailable Medications Current Medications MedicationDrug Class(es)DatesSig (Normalized)Sig (Original)ciprofloxacin 3 mg/ml ophthalmic solution (5 sources)Quinolone AntimicrobialStart: 32-21-5047xiwf 2 drop(s) into the eye(s) every four hoursciprofloxacin (Ciloxan) 0.3 % ophthalmic solution USE 2 DROPS IN AFFECTED EYE EVERY 4 HOURS FOR 7 DAYS 03/01/2024 ActiveStart: 03-01-2024 End: 98-78-1415wxogfauxzrcll Opth 0.3% Adwoa 2 drop(s), OPTH, q4hr for 7 day(s), 5 mL, Refill(s) 0, [facility]/pharmacy #[id number], 185.5, cm, 03/01/24 9:17:00 EDT, Height/Length Dosing, 88.6, kg, 03/01/24 9:17:00 EDT, Weight Dosing Start Date: 03/01/24 Stop Date: 03/08/24 Status: OrderedprednisoLONE acetate 10 mg/ml ophthalmic suspension (1 source)CorticosteroidStart: 03-13-2024 End: 98-19-1468tepa 1 drop(s) into the eye(s) in the morningprednisoLONE acetate (Pred-Forte) 1 % ophthalmic suspension Indications: Uveitis, anterior Administer 1 drop into the right eye in the morning and 1 drop before bedtime. Do all this for 14 days. 5 mL03/13/2024 03/27/2024 ActivetraMADol hydrochloride 50 mg oral tablet (1 source)Opioid AgonistStart: 80-16-5105eost 0.5-1 tablets by mouth every six hours as needed for painTramadol (Ultram) 50 mg tablet Active 50 MG PO Q6H 45 7 November 04, 2018 12:37pm 1/2 - 1 tab po q 6 hours prn painZofran ODT 4 mg Tab-Dis (1 source)Start: 85-54-3151hawg 1 tablet by mouth every eight hours as needed for vomitingZofran ODT 4 mg Tab-Dis 4 mg = 1 tab(s), Oral, q8hr, PRN vomiting, # 12 tab(s), Refills(s) 0, Pharmacy: [facility] #[id number], 185.5, cm, 11/26/24 13:43:00 EDT, Height/Length Dosing, 107.1, kg,11/26/24 13:43:00 EDT, Weight Dosing Start Date: 11/26/24 Status: Ordered Quantity: 12.0 Unit: tab(s) Repeat number: 1 Completed/Discontinued Medications MedicationDrug Class(es)DatesSig (Normalized)Sig (Original)ibuprofen 600 mg oral tablet (2 sources)Nonsteroidal Anti-inflammatory DrugStart: 05-08-2017 End: 15-91-1225Xsszggqka Discontinued 600 MG PO every 6 to 8 hours May 08, 2017 11:07am November 04, 2018 8:23amsulfamethoxazole 800 mg / trimethoprim 160 mg oral tablet (1 source)Dihydrofolate Reductase Inhibitor Antibacterial, Sulfonamide AntimicrobialStart: 03-30-2017 End: 17-23-9298hova 1 tablet by mouth twice dailySulfamethoxazole-Trimethoprim (Bactrim Ds) 800-160 mg tablet Discontinued 1 TAB PO Twice daily March 30, 2017 1:07pm May 08, 2017 10:17am Problems Active Problems Problem ClassificationProblemDateDocumented DateEpisodic/ChronicBlindness and vision defects (2 sources)Blurring of visual image; Translations: [Other visual disturbances] 06-55-8508RnzyhggqSiqzcub dysrhythmias (2 sources)Palpitations; Translations: [Palpitations]Onset: 58-51-9183Itceynig Inflammation; infection of eye (except that caused by tuberculosis or sexually transmitteddisease) (3 sources)Acute conjunctivitis of right eye; Translations: [Unspecified acute conjunctivitis, right eye]Onset: 49-97-5635XflrcofvWvonqfmgsb infection (1 source)Bacterial food poisoning; Translations: [Bacterial foodborne intoxication, unspecified]Onset: 61-73-2210RwfidmoeHwvirh and vomiting (3 sources)Vomiting; Translations: [Vomiting, unspecified]Onset: 11-26-2024 EpisodicNonspecific chest pain (2 sources)Other chest pain; Translations: [Other chest pain]Onset: 07-03-2024 EpisodicOpen wounds of extremities (1 source)Laceration of hand; Translations: [Laceration without foreign body of unspecified hand, initial encounter]02-99-7877AcscsheyXlufy eye disorders (2 sources)Pain in eye; Translations: [Ocular pain, right eye]17-79-9507Pnawkxsn Other screening for suspected conditions (not mental disorders or infectious disease) (4 sources)Abnormal electrocardiogram [ECG] [EKG]; Translations: [Other specified abnormal findings of blood chemistry]Onset: 86-34-5574GixpeytwXzekuyku codes; unclassified (1 source)Tobacco lqmk19-60-0448BbyabbzkMfen and subcutaneous tissue infections (5 sources)Pilonidal cyst; Translations: [Pilonidal cyst without abscess] 60-87-4798HnmweehhDxixaaz and strains (1 source)Sprain of ankle; Translations: [Sprain of unspecified ligament of unspecified ankle, initial encounter]33-51-9415RujtnwdfWpizcnkazari (1 source)Supraventricular tachycardia, unspecified; Translations: [Supraventricular tachycardia, unspecified]Onset: 08-15-2024 Past or Other Problems Problem ClassificationProblemDateDocumented DateEpisodic/ChronicUnclassified (4 sources)kidney 280-45-7952Uigkyfw on above:father states that kineys are located in the front of his abdomen and are connected. States they are each functioning but they are connected to each other.Unclassified (1 source)Supraventricular tachycardia, unspecified; Translations: [Supraventricular tachycardia, unspecified]Onset: 08-15-2024 Results Test NameValueInterpretationReference RangeFacilityAmbulatory Visit Summaryon 69-88-9232Xqfaovtcol Visit SummaryAmbulatory Visit Summary BLANCA MEJIA :2000 Visit Date:01/20/2025 Ambulatory Visit Instructions Your Diagnosis Foodborne gastroenteritis Your Care Team Attending Physician - Bhavya TRIVEDI, Kong Primary Care Physician - NONE, XXXX Procedures Performed Pilonidal cyst with abscess (09/13/2017), ORIF - Open reduction and internal fixation of fracture (09/13/2009), Adenoidectomy (08/07/2005), History of tonsillectomy (08/07/2005), Hydrocelectomy (05/20/2003), kidney (09/18/2002), Cystoscopy (2002). Discharge Vitals Temperature (Tympanic) 36.8 ???C Heart Rate (Peripheral) 73 Blood Pressure 134/86 Height 185.5 cm Height 73 in Weight 104 kg Weight 229.28 lb BMI 30.22 Allergies No Known Allergies Problems Ongoing - Any problem that you are currently receiving treatment for. Vomiting Historical - Any problem that you are no longer receiving treatment for. kidney Patient Survey You may receive a survey via text or e-mail asking about your office visit. Please share your experience with us by completing your survey. We appreciate your feedback and thank you for choosing us for your care. Patient Portal You may access all of your results and other medical record information on our secure patient portal. If you are not signed up for this yet, please contact [employer] Information Management at [phone] to get signed up today. Language Information Language assistance services are available as needed. [facility] Medicine Office/Clinic Noteon 27-28-4542Xlasww Medicine Office/Clinic NoteFaframingham union hospital Medicine Office/Clinic Note Chief Complaint nausea HPI Staff 24 year old nausea and upset stomach yesterday needs doctors note for work History of Present Illness I have reviewed and verified the staff HPI to be accurate for this encounter. Portions of this record have been created with voice recognition software. Occasional wrong-word or???luekc-r-oweu??? substitutions may have occurred due to the inherent limitations of voice recognition software. Blanca is a 24-year-old male presents to convenient care today for complaints of nausea, upset stomachyesterday, patient believes that he ate bad food causing him to have the upset stomach and nausea yesterday into today. Patient states symptoms are improving at this time, nausea is improved, is keeping down food and water still having small amounts of diarrhea. Patient states that he did have to call off of work and needs a work note. No black or bloody stool no coffee-ground emesis reported. Nohistory of GI bleed. Denies any fever Review of Systems PHQ Score Initial Depression Screen Score: 0 SCORE ROS negative unless otherwise stated in HPI. Physical Exam Vitals & Measurements T: 36.8 ???C(Tympanic) HR: 73(Peripheral) BP: 134/86 SpO2: 97% HT: 73 in HT: 185.5 cm WT: 229.28 lb WT: 104 kg BMI: 30.22 General: Well developed, well nourished, in no acute distress Eyes: Pupils equal, round, and reactive to light. Conjunctivae and sclerae normal, and extraocular movements intact Ears: No deformity or lesion of external ear. Canals and TM appear normal bilaterally. TM???s intact, not inflamed, with normal light reflex. Hearing grossly normal to conversational speech Nose: No deformity, discharge, inflammation, or lesions Mouth: Mucous membranes moist. Normal oropharynx, and posterior pharynx without lesions or exudates. Tongue normal Neck: no adenopathy Lungs: clear to auscultation throughout, no wheezing, no rales. No respiratory distress Cardio: regular rate and rhythm, no murmur Abdomen: soft, nondistended, BS normal and active x4. Denies tenderness. No guarding or grimacing Musculoskeletal: not assessed Extremity: not assessed Neurologic: not assessed Skin: No rashes, ulcerations, or suspicious lesions Mental Status: Alert and oriented x3. Normal mood and affect Assessment/Plan 1. Foodborne gastroenteritis (A05.9: Bacterial foodborne intoxication, unspecified) Patient likely having mild gastroenteritis due to bad food consumed over the last 2 days as symptoms started yesterday. Patient declined Zofran 4 mg tablets as needed for nausea vomiting, as this is improving. He was instructed to slowly introduce clear liquids for 24 hours followed by brat diet for 24 hours followed by slow reintroduction of food after that. Encouraged hydration with electrolyte replacement fluids . He was provided with a note for work with return precautions as long as he hasbeen fever free and vomiting free for 24 hours. Reasons to go to the emergency department includingsevere right or upper quadrant or right lower quadrant abdominal pain fevers chills black or bloody stool. Patient agreeable with this plan of care. Follow-up With When Contact Information NONE, XXXX Additional Instructions: Patient Education Food Poisoning, Zoas-oc-Iyxp Problem List/Past Medical History Ongoing Vomiting Historical kidney Procedure/Surgical History Pilonidal cyst with abscess (09/13/2017), ORIF - Open reduction and internal fixation of fracture (09/13/2009), Adenoidectomy (08/07/2005), History of tonsillectomy (08/07/2005), Hydrocelectomy (05/20/2003), kidney (09/18/2002), Cystoscopy (2002). Medications No active medications Allergies No Known Allergies Social History Alcohol - Denies Alcohol Use, 10/01/2009 Substance Abuse - Denies Substance Abuse, 10/01/2009 Tobacco - Denies Tobacco Use, 10/01/2009 5-9 cigarettes (between 1/4 to 1/2 pack)/day in last 30 days Tobacco Use:. Never Smokeless Tobacco Use:., 01/20/2025 Immunizations Vaccine Date Status diphtheria/pertussis, acel/tetanus adult 11/23/2021 Recorded meningococcal conjugate vaccine 02/08/2018 Recorded human papillomavirus vaccine 07/08/2013 Recorded hepatitis A pediatric vaccine 07/08/2013 Recorded human papillomavirus vaccine 02/26/2013 Recorded varicella virus vaccine 12/26/2012 Recorded diphtheria/pertussis, acel/tetanus adult 12/26/2012 Recorded meningococcal conjugate vaccine 12/26/2012 Recorded human papillomavirus vaccine 12/26/2012 Recorded hepatitis A pediatric vaccine 12/26/2012 Recorded poliovirus vaccine, inactivated 01/16/2006 Recorded varicella virus vaccine 01/09/2006 Recorded measles/mumps/rubella virus vaccine 01/09/2006 Recorded DTaP, unspecified formulation 01/09/2006 Recorded hepatitis B pediatric vaccine 07/24/2002 Recorded DTaP, unspecified formulation 07/24/2002 Recorded measles/mumps/rubella virus vaccine 11/15/2001 Recorded Hib, unspecified formulation 11/15/2001 R (more content not included)...[facility] HospitalComment on above:Result Comment: Electronically Signed By: Bhavya TRIVEDI, Kong\.br\Date and Time Signed: 01/20/25 13:37 EDT Provider Letteron [phone] LetterProvider Letter January 20, 2025 BLANCA MEJIA [address] [facility] [address] [place] [id number] : 2000 To Whom It May Concern, Blanca Mejia Please excuse above patient from work. Date of Illness: From: _01/20/2025 May Return to Work On:01/21/2025 Sincerely, Kong Latif [facility] [address] [place] [address], [facility] [place] [address] XpumikChffxnThe MetroHealth SystemAmbulatory Visit Summaryon [id number] Visit SummaryAmbulatory Visit Summary BLANCA MEJIA :2000 Visit Date:11/26/2024 Ambulatory Visit Instructions Your Diagnosis Vomiting Your Care Team Attending Physician - Julio César TRIVEDI, Surekha Esparza Primary Care Physician - NONE, XXXX This Is Your Medications List ondansetron (Zofran ODT 4 mg Tab-Dis) Procedures Performed Pilonidal cyst with abscess (09/13/2017), ORIF - Open reduction and internal fixation of fracture (09/13/2009), Adenoidectomy (08/07/2005), History of tonsillectomy (08/07/2005), Hydrocelectomy (05/20/2003), kidney (09/18/2002), Cystoscopy (2002). Discharge Vitals Temperature (Temporal Artery) 36.7 ???C Heart Rate (Peripheral) 63 Respiratory Rate 18 Blood Pressure 132/80 Height 185.5 cm Height 73 in Weight 107.1 kg Weight 236.115 lb BMI 31.12 What to do next You Need to Schedule the Following Appointments Follow Up with Jeri FRANCIS CNP When: Where: Follow Up with Allyssa TRIVEDI, Sincere Montgomery [place], MED When: Where: Follow Up with ALVARO PATEL FAAFP, Jeramy Dalton, [place], PED When: Where: [address], [place] [address]- Medications What How Much When Instructions New ondansetron (Zofran ODT 4 mg Tab-Dis) 1 Tablets By Mouth Every 8 hours as needed for vomiting Pickup at [facility] #[id number] Pharmacy Information [facility] #[id number]: [address] [place], [place] [phone] Allergies No Known Allergies Problems Ongoing - Any problem that you are currently receiving treatment for. Vomiting Historical - Any problem that you are no longer receiving treatment for. kidney Patient Survey You may receive a survey via text or e-mail asking about your office visit. Please share your experience with us by completing your survey. We appreciate your feedback and thank you for choosing us for your care. Education Materials Nausea and Vomiting, Adult Nausea is the feeling that you have an upset stomach or that you are about to vomit. As nausea getsworse, it can lead to vomiting. Vomiting is when stomach contents forcefully come out of your mouthas a result of nausea. Vomiting can make you feel weak and cause you to become dehydrated. Dehydration can make you feel tired and thirsty, cause you to have a dry mouth, and decrease how often you urinate. Older adults and people with other diseases or a weak disease-fighting system (immune system) are at higher risk for dehydration. It is important to treat your nausea and vomiting as told by your health care provider. Follow these instructions at home: Watch your symptoms for any changes. Tell your health care provider about them. Eating and drinking ??? Take an oral rehydration solution (ORS). This is a drink that is sold at pharmacies and retail stores. ??? Drink clear fluids slowly and in small amounts as you are able. Clear fluids include water, ice chips, low-calorie sports drinks, and fruit juice that has water added (diluted fruit juice). ??? Eat bland, ccax-qe-mmwbhe foods in small amounts as you are able. These foods include bananas, applesauce, rice, lean meats, toast, and crackers. ??? Avoid fluids that contain a lot of sugar or caffeine, such as energy drinks, sports drinks, and soda. ??? Avoid alcohol. ??? Avoid spicy or fatty foods. General instructions ??? Take tvur-mdq-syjtskz and prescription medicines only as told by your health care provider. ??? Drink enough fluid to keep your urine pale yellow. ??? Wash your hands often using soap and water for at least 20 seconds. If soap and water are not available, use hand water resources technical officer. ??? Make sure that everyone in your household washes their hands well and often. ??? Rest at home while you recover. ??? Watch your condition for any changes. ??? Take slow and deep breaths when you feel nauseous. ??? Keep all follow-up visits. This is important. Contact a health care provider if: ??? Your symptoms get worse. ??? You have new symptoms. ??? You have a fever. ??? You cannot drink fluids without vomiting. ??? Your nausea does not go away after 2 days. ??? You feel light-headed or dizzy. ??? You have a headache. ??? You have muscle cramps. ??? You have a rash. ??? You have pain while urinating. Get help right away if: ??? You have pain in your chest, neck, arm, or jaw. ??? You feel extremely weak or you faint. ??? You have persistent vomiting. ??? You have vomit that is bright red or looks like black coffee grounds. ??? You have bloody or black stools (feces) or stools that look like tar. ??? You have a severe headache, a stiff neck, or both. ??? You have severe pain, cramping, or bloating in your abdomen. ??? You have difficulty breathing, or you are breathing very quickly. ??? Your heart is beating very quickly. ??? Your skin feels cold and cla (more content not included)...The [facility] SystemAmbulatory Visit SummaryAmbulatory Visit Summary BLANCA MEJIA :2000 Visit Date:11/26/2024 Ambulatory Visit Instructions Your Diagnosis Vomiting Your Care Team Attending Physician - Surekha Steele Primary Care Physician - NONE, XXXX This Is Your Medications List ondansetron (Zofran ODT 4 mg Tab-Dis) Procedures Performed Pilonidal cyst with abscess (09/13/2017), ORIF - Open reduction and internal fixation of fracture (09/13/2009), Adenoidectomy (08/07/2005), History of tonsillectomy (08/07/2005), Hydrocelectomy (05/20/2003), kidney (09/18/2002), Cystoscopy (2002). Discharge Vitals Temperature (Temporal Artery) 36.7 ???C Heart Rate (Peripheral) 63 Respiratory Rate 18 Blood Pressure 132/80 Height 185.5 cm Height 73 in Weight 107.1 kg Weight 236.115 lb BMI 31.12 What to do next You Need to Schedule the Following Appointments Follow Up with Jeri FRANCIS CNP When: Where: Follow Up with Allyssa TRIVEDI, ADRIENNE Cortés, MED When: Where: Follow Up with Jeramy JOHN DO, FAAFP, FAM, PED When: Where: [address] [facility], [facility] [place] [address]- Medications What How Much When Instructions New ondansetron (Zofran ODT 4 mg Tab-Dis) 1 Tablets By Mouth Every 8 hours as needed for vomiting Pickup at [facility] #[id number] Pharmacy Information [facility] #[id number]: [address] [place], [place] [phone] Allergies No Known Allergies Problems Ongoing - Any problem that you are currently receiving treatment for. Vomiting Historical - Any problem that you are no longer receiving treatment for. kidney Patient Survey You may receive a survey via text or e-mail asking about your office visit. Please share your experience with us by completing your survey. We appreciate your feedback and thank you for choosing us for your care. Education Materials Nausea and Vomiting, Adult Nausea is the feeling that you have an upset stomach or that you are about to vomit. As nausea getsworse, it can lead to vomiting. Vomiting is when stomach contents forcefully come out of your mouthas a result of nausea. Vomiting can make you feel weak and cause you to become dehydrated. Dehydration can make you feel tired and thirsty, cause you to have a dry mouth, and decrease how often you urinate. Older adults and people with other diseases or a weak disease-fighting system (immune system) are at higher risk for dehydration. It is important to treat your nausea and vomiting as told by your health care provider. Follow these instructions at home: Watch your symptoms for any changes. Tell your health care provider about them. Eating and drinking ??? Take an oral rehydration solution (ORS). This is a drink that is sold at pharmacies and retail stores. ??? Drink clear fluids slowly and in small amounts as you are able. Clear fluids include water, ice chips, low-calorie sports drinks, and fruit juice that has water added (diluted fruit juice). ??? Eat bland, ndvc-mh-fyzfwm foods in small amounts as you are able. These foods include bananas, applesauce, rice, lean meats, toast, and crackers. ??? Avoid fluids that contain a lot of sugar or caffeine, such as energy drinks, sports drinks, and soda. ??? Avoid alcohol. ??? Avoid spicy or fatty foods. General instructions ??? Take jqrn-pqt-tzwwuqr and prescription medicines only as told by your health care provider. ??? Drink enough fluid to keep your urine pale yellow. ??? Wash your hands often using soap and water for at least 20 seconds. If soap and water are not available, use hand water resources technical officer. ??? Make sure that everyone in your household washes their hands well and often. ??? Rest at home while you recover. ??? Watch your condition for any changes. ??? Take slow and deep breaths when you feel nauseous. ??? Keep all follow-up visits. This is important. Contact a health care provider if: ??? Your symptoms get worse. ??? You have new symptoms. ??? You have a fever. ??? You cannot drink fluids without vomiting. ??? Your nausea does not go away after 2 days. ??? You feel light-headed or dizzy. ??? You have a headache. ??? You have muscle cramps. ??? You have a rash. ??? You have pain while urinating. Get help right away if: ??? You have pain in your chest, neck, arm, or jaw. ??? You feel extremely weak or you faint. ??? You have persistent vomiting. ??? You have vomit that is bright red or looks like black coffee grounds. ??? You have bloody or black stools (feces) or stools that look like tar. ??? You have a severe headache, a stiff neck, or both. ??? You have severe pain, cramping, or bloating in your abdomen. ??? You have difficulty breathing, or you are breathing very quickly. ??? Your heart is beating very quickly. ??? Your skin feels cold and cla (more content not included)...[facility] Medicine Office/Clinic Noteon [phone] Medicine Office/Clinic NoteFaframingham union hospital Medicine Office/Clinic Note Chief Complaint vomitting, diarrhea HPI Staff 24 year old male presents with vomiting, diarrhea, and abdominal pain. Pt. states he thinks he was has food poisoning. Onset this morning History of Present Illness 24-year-old patient with no past medical history former patient of Dr. New presents today with nausea vomiting diarrhea and mild abdominal pain. He states he has not vomited an hour and a half. He called off work due to this illness. He thinks he ate some bad [employer]. Denies any right upper or lower quadrant abdominal pain no history of abdominal surgeries. No black or bloody stool no coffee-ground emesis reported. No history of GI bleed. Denies any fever Review of Systems PHQ Score Initial Depression Screen Score: 0 SCORE Physical Exam Vitals & Measurements T: 36.7 ???C(Temporal Artery) HR: 63(Peripheral) RR: 18 BP: 132/80 SpO2: 98% HT: 73 in HT: 185.5 cm WT: 236.115 lb WT: 107.1 kg BMI: 31.12 General: alert, no acute distress, well appearing, _pleasant, younger male in room 4 Skin: warm, dry, intact Head: no trauma, normocephalic Neck: Trachea midline, no adenopathy, no tenderness Eye: normal conjunctiva, sclera clear, _PERRLA ENMT: , oral mucosa moist, no pharyngeal erythema or exudate, normal dentition Cardiovascular: regular rate and rhythm, normal peripheral perfusion, no edema Respiratory: Lungs CTA, respirations non labored Chest wall: no deformity, non tender Gastrointestinal: soft, non distended, mild epigastric tenderness, no tenderness at McBurney's point, negative Coughlin sign, no guarding. Back: No tenderness, Normal ROM, Normal alignment. Extremities: no deformity, no trauma Neurological: oriented x 4, LOC appropriate for age, CN II-XII intact, motor strength equal & normal bilaterally, sensation equal & normal bilaterally, speech normal Psychiatric: cooperative? , affect appropriate for age? , normal? judgement, normal? psychiatric thoughts. Assessment/Plan Patient likely having mild gastroenteritis due to bad food/ possibly from [employer]. Patient will be given Zofran 4 mg tablets as needed for nausea vomiting. He was instructed to slowly introduce clear liquids for 24 hours followed by brat diet for 24 hours followed by slow reintroduction of food after that. Encouraged hydration with electrolyte replacement fluids . he was given a note for work with return precautions as long as he has been fever free and vomiting free for 24 hours. Reasons to go to the emergency department including severe right or upper quadrant or right lower quadrant abdominal pain fevers chills black or bloody stool. Patient agreeable with this plan of care. He was given follow-up information for PCP at Dr. Pham's office as he is no longer taking new patients. 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 1. Vomiting (R11.10: Vomiting, unspecified) Orders: ondansetron, 4 mg = 1 tab(s), Oral, q8hr, PRN vomiting, # 12 tab(s), Refills(s) 0, [id number], 185.5, cm, 11/26/24 13:43:00 EDT, Height/Length Dosing, 107.1, kg, 11/26/24 13:43:00 EDT, Weight Dosing Total time spent preparing the chart, conducting of the encounter with the patient and family and time spent documenting, reviewing, and ordering tests was 25 minutes. Portions of this record may have been created with voice recognition artificial intelligence software, specifically [employer], [employer] and or [employer]. Substitutions may have occurred due to the inherent limitations of voice recognition and artificial intelligence software. Follow-up With When Contact Information TITO COHEN, Jeri Chapin Additional Instructions: Allyssa TRIVEDI, Sincere Montgomery, ADRIENNE, MED Additional Instructions: ALVARO PATEL FAAFP, Jeramy Dalton, ADRIENNE, PED [address], [place] [address]- Additional Instructions: Patient Education Nausea and Vomiting, Adult Problem List/Past Medical History Ongoing Vomiting Historical kidney Procedure/Surgical History Pilonidal cyst with abscess (09/13/2017), ORIF - Open reduction and internal fixation of fracture (09/13/2009), Adenoidectomy (08/07/2005), History of tonsillectomy (08/07/2005), Hydrocelectomy (05/20/2003), kidney (09/18/2002), Cystoscopy (2002). Medications Zofran ODT 4 mg Tab-Dis, 4 mg= 1 tab(s), Oral, q8hr, PRN Allergies No Known Allergies Social History Alcohol - Denies Alcohol Use, 10/01/2009 Substance Abuse - Denies Substance Abuse, 10/01/2009 Tobacco - Denies Tobacco Use, 10/01/2009 Never (less than 100 in lifetime) Tobacco Use:. Never Smokeless Tobacco Use:., 11/26/2024 Immunizations Vaccine Date Status diphtheria/pertussis, acel/tetanus adult 11/23/2021 Recorded meningococcal conjugate vaccine 02/08/2018 Recorded human papillomavirus vaccine 07/08/2013 Recorded hepatitis A pediatric vacc (more content not included)...[facility] SystemComment on above:Result Comment: Electronically Signed By: Julio César TRIVEDI, Surekha Esparza\.br\Date and Time Signed: 11/26/24 14:07 EDTProvider Letteron [id number] LetterProvider Letter [address] [place] [address] November 26, [address] [place] [address] : 2000 To Whom It May Concern, Please excuse above patient from work. Date of Illness: From: _ 11/26/24 To: _11/27/24 May Return to Work On: 11/27/24 only if fever free and no vomiting for 24 hours. Restrictions: _ Comments: _ Sincerely, Surekha Angela [facility] [address] [place] [address], [place] [address] OuaxwiVvzrcgThe MetroHealth System36on [phone] message to reschedule 11/17 appt, Dr Manzano not available.[facility], AvonOffice Visiton [id number]-up [id number] Blanca Mejia Rojelio 2000 M Date Provider Department Center 08/15/2024 54375-OYPUALPESH MANZANO [facility] C[facility] Family History Problem Relation Age of Onset Atrial fibrillation Mother Heart attack Mother's Sister 42 Atrial fibrillation Maternal Grandmother Other Maternal Grandfather Family Status - Relation Status Age at Mother Mother's Sister Alive Maternal Grandmother Maternal Grandfather Level of Service:89048 [place] OFFICE/OUTPATIENT ESTABLISHED MOD MDM 30 MIN (25) Reason for Visit and Comments: New Patient [632] - Abnormal Event monitor results. Patient complaint of occ chest pain and occ palpitationsNormalUniPeoples Hospital Office Visiton [id number]-up [id number] Blanca Mejia 2000 M Date Provider Department Center 07/03/2024 Manuela-YARITZA LAUREN CARD [facility] Family History Problem Relation Age of Onset Atrial fibrillation Mother Heart attack Mother's Sister 42 Atrial fibrillation Maternal Grandmother Other Maternal Grandfather Family Status - Relation Status Age at Mother Mother's Sister Alive Maternal Grandmother Maternal Grandfather Level of Service:56913 [place] OFFICE/OUTPATIENT NEW MODERATE MDM 45 MINUTESNormal [facility] CenterED Note-Physicianon [id number] Note-PhysicianED Note-Physician Basic Information Time Seen: Daniela Tolbert [...] burning pain that sometimes radiates to right hindu and along the parietal bone. Patient denies [...] lacrimal carbuncle. No foreign bodies observed, visual fieldintact, no tenderness to palpation around the periorbital region ENT: Moist mucous membranes. No posterior pharyngeal erythema no exudate swelling shift or mass. Notrisumus no stridor. Tympanic membranes unremarkable bilaterally no injection erythema no posterioreffusions perforation or pus. Cardiovascular: Regular rate normal peripheral perfusion Respiratory: No respiratory distress no accessory muscle use no obvious audible wheezing Musculoskeletal: normal ROM, no deformity, no swelling Neurological: A&O moves all extremities equal strength and symmetry Psychiatric: Cooperative and appropriate Procedure Daniela Philip PA-C had a ehdo-ct-smjq interaction with the patient. I personally performed [...] extraocular movement ruling out concerns for periorbital/orbital cellulitis.Patient's eye was anesthetized with 2 tetracaine drops and stained with fluorescein stain. It was then observed under a Harding lamp. No corneal abrasions or foreign bodies were observed. Patient is being prescribed ciprofloxacin drops and will follow- up with an clinical training specialist next 2 to 3 days. He was advised to return to ED with any new or worsening symptoms. Patient is agreeable with the plan and all questions were answered. Assessment/Plan Acute conjunctivitis, right eye (H10.31: Unspecified acute conjunctivitis, right eye) Orders: ciprofloxacin ophthalmic, 2 drop(s), OPTH, q4hr for 7 day(s), 5 mL, Refill(s) 0, [id number], 185.5, cm, 03/01/24 9:17:00 EDT, Height/Length [...] Moran In 3 days 03/04/2024 EDT [facility] [address] [address]- Business (1) Additional Instructions: Call to schedule an appointment with the clinical training specialist in the next 2 to 3 days. Use the antibiotic drops as prescribed. Return to the ED with any new or worsening symptoms. Patient Education Bacterial Conjunctivitis, Adult, Ozxl-tq-Hkry Attestation Patient seen and evaluated by the physician language assistant. Attending physician was present in the emergency department and supervised care. This visit was performed by both the physician and an APC. I performed all aspects of the MDM as documented. This report was transcribed using voice recognition software. Every effort was made to ensure accuracy, however, inadvertently computerized mechanical systems designer mistakes may be (more content not included)...[facility] Comment on above:Result Comment: Electronically Signed By: Daniela Tolbert PA-C\.br\Date and Time Signed: 03/01/2417:02 EDT\.br\Electronically Co-Signed By: Martínez Grover MD\.br\Date and Time Co-Signed: 03/28/24 17:07 EDTED Clinical Summaryon [id number] Clinical SummaryED Clinical Summary [place] [id number] ED Clinical Summary Person Information Name: BLANCA MEJIA [facility] Age: 23 Years : 2000 Sex: Male Language: Yi PCP: NONE, XXXX Marital Status: Single Phone: [phone] Visit Id: Visit Reason: Eye pain; Eye [...] 03/09/2024 16:02:06 03/09/2024 16:02:06 03/09/2024 16:02:06 ADDRESS: [address] [place] [phone] PHYS DOC NOTES: MEDICAL INFORMATION: Prescriptions Given: PATIENT EDUCATION INFORMATION: Instructions: Bacterial Conjunctivitis, Adult, Zfng-ud-Xwow Follow up: With: Address: When: Ulises Campbell [facility] 3, 278 [facility], [facility] [address] [place] [address] Business (1) In 3 days 03/12/2024 DIAGNOSIS: 1:Conjunctivitis of right eyeNormalJose Miguel [facility]augherty Medical CenterED Note-Physician on [id number] Note-PhysicianED Note-Physician Basic Information Time Seen: Angela Connell PA-C 03/09/2024 14:06 Chief Complaint pt presents with over a week of reddness to right eye and on ATB drops. pt verbalized pain to eye History of Present Illness This patient presents emergency department chief complaint of ongoing redness of his right eye. Thepatient has not worn his contact lenses since his last visit. He has been wearing his eyeglasses. He has been using the drops that they prescribed him. He states he thinks the redness has actually gotten worse. He is having some slight discomfort. He states that it is more bothersome whenever he isin bright lights. He denies any visual disturbances. [...] production, wheezing, hemoptysis, shortness of breath, dyspnea onexertion Gastrointestinal: Denies abdominal pain, unintentional weight loss, difficulty swallowing, indigestion, bloating, cramping, loss of appetite, nausea, vomiting, diarrhea, constipation, hematochezia, melena Genitourinary: Denies any incontinence of urine, dysuria, hematuria, nocturia, polyuria, hesitancy,frequency, urgency, burning Musculoskeletal: Denies joint pain, morning [...] everted with no evidence of foreign body. Theinner lower lid was examined with no evidence [...] of right eye (H10.9: Unspecified conjunctivitis) Orders: bacitracin/neomycin/polymyxin B ophthalmic, [...] 03/09/24 14:13:00 EDT [facility] (more content not included)...[facility] SystemComment on above:Result Comment: Electronically Signed By: Angela Connell PA-C\.br\Date and Time Signed: 03/09/24 15:57 EDT\.br\Electronically Co-Signed By: Pablo Teague DO\.br\Date and Time Co-Signed: 03/09/24 16:31 EDTED Patient Summaryon [id number] Patient SummaryED Patient Summary [address] [address] Patient Discharge Instructions Person Information Name: BLANCA MEJIA Age: 23 Years Arrival Date: 03/09/2024 14:01:10 Discharge Diagnosis: 1:Conjunctivitis of right eye Primary Care Physician: NONE, XXXX Provider Information Primary Provider: Pablo Teague DO Advanced Eligibility Consultant:Lakesha The exam and treatment you received in the Emergency Department were for an urgent problem and are not intended as complete care. It is important that you follow up with a doctor, nurse practitioner,or physician?s language assistant for ongoing care. If your symptoms become worse or you do not improve as expected and you are unable to reach your usual health care provider, you should return to the Emergency Department. We are available 24 hours a day. BLANCA MEJIA has been given the following list of patient education materials, prescriptions and follow-up instructions: Follow-up Instructions: With: Address: When: Ulises Campbell [facility] 3, [address] [place] [phone] Business (1) In 3 days 03/12/2024 In the event that this physician does not participate in your insurance network, please consult with your insurance company to find a nearby participating provider. Patient Education Materials: Bacterial Conjunctivitis, Adult, Phnc-kl-Zvxe A MESSAGE TO ALL PATIENTS REGARDING OPIOIDS PRESCRIPTION OPIOIDS: WHAT YOU NEED TO KNOW Prescription opioids can be used to help relieve wrdabeal-vv-pfkgkz pain and are often prescribed following a [...] and have fewer risks and side effects. Optionsmay include: ? Pain relievers such as acetaminophen, [...] unused prescription opioids: Find your community drug take- back program or yourAmbitious MindsrmKarmarama mail-back program, or flush them down the toilet, following guidance from the Food and Drug Administration (www.fda.gov/Drugs/ResourcesForYou). ? Visit www.cdc.gov/drugoverdose to learn about the risks of opioids abuse and overdose. ? If you believe you may be struggling with addiction, tell your health acute care nurse and ask for guidance or call [facility]S National Help (more content not included)...[facility] Clinical Summaryon [id number] Clinical SummaryED Clinical Summary [place] [id number] ED Clinical Summary Person Information Name: BLANCA MEJIA [facility] Age: 23 Years : 2000 Sex: Male Language: Yi PCP: NONE, XXXX Marital Status: Single Phone: [phone] Visit Id: Visit Reason: Eye pain; EYE [...] 03/01/2024 10:23:08 03/01/2024 10:23:08 03/01/2024 10:23:08 ADDRESS: [address] [place] [phone] PHYS DOC NOTES: MEDICAL INFORMATION: Prescriptions Given: New Medications [id number], [address] [place], [place] [id number], [phone] ciprofloxacin ophthalmic (ciprofloxacin Opth 0.3% Adwoa) 2 Drops Ophthalmic every 4 hours for 7 Days.Refills: 0. PATIENT EDUCATION INFORMATION: Instructions: Bacterial Conjunctivitis, Adult, Jvsf-di-Ykyh Follow up: With: Address: When[facility], [place] [address] Business (1) In 3 days 03/04/2024 Comments: Call to schedule an appointment with the clinical training specialist in the next 2 to 3 days. Use the antibiotic drops as prescribed. Return to the ED with any new or worsening symptoms. DIAGNOSIS: Acute conjunctivitis, right eyeNormalFisher [facility] Patient Summaryon [id number] Patient SummaryED Patient Summary [address] [address] Patient Discharge Instructions Person Information Name: BLANCA MEJIA Age: 23 Years Arrival Date: 03/01/2024 08:56:01 Discharge Diagnosis: Acute conjunctivitis, right eye Primary Care Physician: NONE, XXXX Provider Information Primary Provider: Advanced Eligibility Consultant:Daniela Tolbert PA-C The exam and treatment you received in the Emergency Department were for an urgent problem and are not intended as complete care. It is important that you follow up with a doctor, nurse practitioner,or physician?s language assistant for ongoing care. If your symptoms become worse or you do not improve as expected and you are unable to reach your usual health care provider, you should return to the Emergency Department. We are available 24 hours a day. BLANCA MEJIA has been given the following list of patient education materials, prescriptions and follow-up instructions: Follow-up Instructions: With: Address: When: Hannah Moran [address] [place] [address] Business (1) In 3 days 03/04/2024 Comments: Call to schedule an appointment with the clinical training specialist in the next 2 to 3 days. Use the antibiotic drops as prescribed. Return to the ED with any new or worsening symptoms. In the event that this physician does not participate in your insurance network, please consult with your insurance company to find a nearby participating provider. Patient Education Materials: Bacterial Conjunctivitis, Adult, Rfbz-il-Uvym A MESSAGE TO ALL PATIENTS REGARDING OPIOIDS PRESCRIPTION OPIOIDS: WHAT YOU NEED TO KNOW Prescription opioids can be used to help relieve zhdakzou-dd-ihcwni pain and are often prescribed following a [...] and have fewer risks and side effects. Optionsmay include: ? Pain relievers such as acetaminophen, [...] unused prescription opioids: Find your community drug take- back program or yourpharmacy mail-back program, or flush them down the toilet, following guidance from the Food and Drug Administration (www.fda.gov/Drugs/ResourcesForYou). ? Visit www.cdc.gov/drugoverdose to learn about (more content not included)... [facility] Vital Signs Date TimeVital SignValuePerforming DcakdqwluJktsmglp47-80-7109 14:05-0400Body jldfmboamqi08.7 [degF]Pablo Teague [address] [place], [place] [address]10-06-2024 14:05-0400 Diastolic blood facwkelu35 mm[Hg]Pablo Teague [address] [place], [place] [address]10-06-2024 14:05-0400Heart rate65 /rogerPablo Teague [address] [place], [place] [address]10-06-2024 14:05-0400 Respiratory rate16 /minPablo Teague [address] [place], [place] [address]10-06-2024 14:05-3950ZmK0% (BldA) [Mass fraction]100 %Pablo Teague [facility]10-06-2024 14:05-0400 Systolic blood crhygnuz703 mm[Hg]Pablo Teague [facility]10-06-2024 12:43-0400Body mass index (BMI) [Ratio]25.86 kg/i9Exajjr 3DR Laboratorieslevasy PA Work Phone: noSaint John's Bree[facility] Medical CenterYnwzradtwa95-64-2064 12:43-0400Body temperature 98.01 [degF][facility] Worklevasy PA Work Phone: noSaint [facility] Medical CenterQpyosdsokg77-49-0261 12:43-0400Body uuwinb96.91 kgSumm 3DR Laboratoriesman PA Work Phone: noSaint [facility] Medical CenterZlczskdtnr26-66-6290 12:43-0400Diastolic blood tkabrlhx73 mm[Hg][facility] 3DR Laboratorieslevasy PA Work Phone: Midawi HoldingsSaint John's B[facility] Medical CenterJhepclcddh71-03-7316 12:43-0400Heart rate89 /min Summer Workman PA Work Phone: [facility] CenterPbcrnpyxid17-99-6996 12:43-6776NyO9% (BldA) [Mass fraction]98 %Summer Workman PA Work Phone: [facility] CenterOeahvyupxg64-60-8854 12:43-0400Systolic blood rpcacerh213 mm[Hg]Summer Workman PA Work Phone: [facility] CenterTeskbxznct98-31-2361 09:14-0400Body temperature 97.52 [degF]Martínez Grover [address]09-28-2024 09:14-0400 Diastolic blood vseaargp33 mm[Hg]Martínez Grover [address]09-28-2024 09:14-0400Heart rate59 /minTim Reilly [address] [place], [place] 66[address]909-28-2024 09:14-0400 Respiratory rate17 /minTim Reilly [address] [place], [place] [address]909-28-2024 09:14-9143TdK0% (BldA) [Mass fraction]100 %Martínez Grover [facility]09-28-2024 09:14-0400 Systolic blood nnxicppn122 mm[Hg]Martínez Grover [address] [place], [place] 6610906-22-2022 16:40-0400Body yexefr412.88 cmPHYSICIAN [facility]06-22-2022 16:40-0400Body mass index (BMI) [Ratio]29.2 kg/a9YTPOXTOZR [facility]06-22-2022 16:40-0400Body ougsevvbbwc92.7 [degF]PHYSICIAN [facility]06-22-2022 16:40-0400Body azkgex76 kg PHYSICIAN [facility]06-22-2022 16:40-0400 Diastolic blood hrlyswcg79 mm[Hg]PHYSICIAN NO [facility]06-22-2022 16:40-0400Heart rate68 /minPHYSICIAN NO [facility]06-22-2022 16:40-0400Respiratory rate18 /minPHYSICIAN NO [facility]06-22-2022 16:40-8923PrA5% (BldA) [Mass fraction]99 %PHYSICIAN NO [facility]06-22-2022 16:40-0400Systolic blood kugvbchp190 mm[Hg]PHYSICIAN NO [facility] Encounters Encounter DateEncounter TypeCare ProviderFacilityStart: 01-20-2025 End: 06-20-4916ofjjuiauowLbvws Cody KelchFacility:CC [place]walkStart: 01-20-2025 End: 78-47-5410Ibtltuq encounter procedureDavishruti Latif [phone]-IbqloPromedica [facility] Start: 11-26-2024 End: 04-54-7548hlsgvdenjeBizxoralk L ClarkFacility:CC [place]walkStart: 11-26-2024 End: 37-87-4172Vjaupiu encounter procedureSurekha Angela [phone]-NscvjPromedica Fostoria Community Hospital [facility] Start: 59-99-0096qrehbagaefFCJBKGVP [facility] Hospitaltart: 07-03-2024 End: 95-98-9620xaimjwoippRBNQVV MOUKASumma Health [facility] Start: 05-23-2024 End: 25-99-2219rfeilxqrvmHjfjuvb HARWOODFacility:[facility]upational Health and WellnessStart: 03-13-2024 End: 52-34-3270Mhtxlkkelly Moran MD Work Phone: noms NB OPHTStart: 03-13-2024 End: 11-73-8404Qdavhmkelly Moran MD Work Phone: [facility] NB OPHTStart: 03-13-2024 End: 07-96-7960sqqtcanewnJVRLF M ALLENNot AvailableStart: 03-13-2024 End: 14-38-2315Zfoixw outpatient new 45 Ambrosio Moran MD Work Phone: noms NB OPHTComment on above:Uveitis, anterior (Primary Dx)Start: 03-09-2024 End: 80-95-7906Hbirqlyjv department patient visitPablo AlfredoDonna Teague [facility] Start: 03-09-2024 End: 05-73-1329igmxybxadhQBUXNA M WORKMANNot AvailableStart: 03-09-2024 End: 08-63-3794Oevonp outpatient new 20 minutesJuanita MACEDO Work Phone: noms SWS UCComment on above:Acute right eye pain (Primary Dx); Blurry vision, right eyeStart: 03-01-2024 End: 48-92-7514Vkcmenxoq department patient visitMartínez Grover [facility] Start: 11-23-2021 End: 22-79-7626Xfyjsmbnz department patient visitPHYSICIAN [facility] Procedures DateProcedureProcedure DetailPerforming ClinicianStart: 79-94-1330Jamklycch cyst with abscess (disorder)Martínez Grover Comment on above:Excision of pilonidal cyst in midline Start: 75-42-8894Geyg reduction of fracture with internal fixationMartínez Grover Comment on above:left wristStart: 05-91-3079Xemvdhv excisionMartínez Grover Comment on above:surgery was done same time as tonsillectomyStart: 55-19-6791Crhmmtl of tonsillectomyMartínez Grover Start: 41-24-3141EiyyqqxckurlblWld Thomas Comment on above:rightStart: 11-25-9082ptuicq 5Tim Reilly Comment on above: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, and he had reflux, so he had ureteral tubes snipped and replaced themStart: 73-04-3387JfbuvhixjpWnc Reilly Plan of Treatment DateCare ActivityDetailAuthorStart: 03-13-2024 End: 62-51-6249Hrrigfd encounter eiwdmzewt20/10/2024 1:15 PM EDT Office Visit [facility] [address] [place] [address] Hannah Moran MD [address] [place] [address] [facility] OPHTPatient EducationLaceration Repair With Stitches [facility] Work Phone: Patient [facility] Work Phone: Immunizations Immunization DateImmunizationNotesCare ErjmlfbxAxxkdmyt34-92-3420jxpqkrb toxoid, reduced diphtheria toxoid, and acellular pertussis vaccine, adsorbedPHYSICIAN NO [facility]09-07-2018meningococcal ACWY vaccine, unspecified formulationSurekha Angela 008-7970Anqgwy-YcdnbPromedica Fostoria [facility] Hospital [facility] Jyow11-58-7576 hepatitis A vaccine, unspecified formulationSurekha Angela [phone]-QvkgwPromedica Fostoria [facility] Bota61-55-2094 HPV, unspecified formulationSurekha Angela [phone]-DanaaPromedica Fostoria Community Hospital [facility] Pahw10-60-4757 HPV, unspecified formulationSurekha Angela 086-6893Gzonwj-GqvrqPromedica Fostoria [facility] Hospital [facility] Ynwm82-89-9653 hepatitis A vaccine, unspecified formulationSurekha Angela [phone]-Yrzih[address] [place] [address] [facility]ient Rnlz31-85-3449 HPV, unspecified formulationSurekha Angela [phone]-Fiyeo[address] [place] [address] [facility] Tqeh36-27-9611 meningococcal ACWY vaccine, unspecified formulationSurekha Angela [phone]-KotzcPromedica Fostoria Community Hospital [facility] Ujhj37-46-9077 tetanus toxoid, reduced diphtheria toxoid, and acellular pertussis vaccine, adsorbedSurekha Angela [phone]-Ocncp[address] [place] [address] [facility] Jlvj29-83-1188 varicella virus vaccineElizatung Angela [phone]-Qnszg[address] [place] [address] [facility] Bvqa72-06-1688 poliovirus vaccine, unspecified formulationSurekha Angela [phone]-Tppce[address] [place] [address] [facility] Oimo96-79-9939 DTaP, unspecified formulationSurekha Angela [phone]-Fipow[address] [place] [address] [facility] Mjmz97-91-0318 measles, mumps and rubella virus vaccineElizatung Angela [phone]-Vhjqf[address] [place] [address] [facility] Sylw90-24-7674 varicella virus vaccineSurekha Angela [phone]-Fqnvm[address] [place] [address] [facility] Kxtd01-36-7765 DTaP, unspecified formulationSurekha Angela [phone]-Zymmr[address] [place] [address] [facility] Otlc60-99-2414 hepatitis B vaccine, pediatric or pediatric/adolescent dosageElidago Angela [phone]-Fxvfc[address] [place] [address] [facility] Uswx59-93-7731 Hib, unspecified formulationSurekha Angela [phone]-Rrqnq[address] [place] [address] [facility] Xksx30-44-1224 measles, mumps and rubella virus vaccineElidago Angela [phone]-Ercio[address] [place] [address] [facility] Jwgw64-17-2061 DTaP, unspecified formulationSurekha Angela [phone]-Njuys[address] [place] [address] [facility] Pvnv79-72-3073 Hib, unspecified formulationElizabeth Julio César [phone]-FgpqxProm[facility] Jygu65-47-9629 poliovirus vaccine, unspecified formulationElizabeth Julio César [phone]-RxachPromedica [facility] Qrgk21-64-1355 DTaP, unspecified formulationElizabeth Julio César [phone]-TwvsfProm[facility]ica [facility] Bnow93-60-7916 Hib, unspecified formulationElizabeth Julio César [phone]-QxjxlProm[facility] Wlvh50-73-6777 poliovirus vaccine, unspecified formulationElizabeth Julio César [phone]-QljkfPromedica F[facility]oria [facility] Opys69-12-5543 DTaP, unspecified formulationElizabeth Julio César [phone]-ZtihvPromedica F[facility]oria [facility] Youw60-25-5864 hepatitis B vaccine, pediatric or pediatric/adolescent dosageElizabeth Julio César [phone]-UeuqaPromedica Fostoria [facility] Hospital [facility] Behq63-32-8981 Hib, unspecified formulationElizabeth Julio César [phone]-DyerdPromedica F[facility]oria [facility] Jpms62-75-1142 poliovirus vaccine, unspecified formulationElizabeth Julio César [phone]-TltdzPromedica F[facility] Zxda86-00-9653 hepatitis B vaccine, pediatric or pediatric/adolescent dosageElizabeth Julio César [phone]-HfxoePromedica Fostoria [facility] Hospital [facility] Payers DatePayer CategoryPayerPolicy [id number] [employer] Insurance [id number] [id number] 2..840.1.864560.3.57[id number] 2.16.840.1.104073.3.57[id number] 2..840.1.285678.3.57[id number] 2..840.1.744488.3.57[id number] 2..840.1.496613.3.57[id number] 2.16.840.1.407407.3.579.2.727Self-paySelf Pay [id number] Social History DateTypeDetailFacilityStart: 11-23-2021 End: 01-00-8010Muqpxiz smoking status NHISNever smoked tobacco (finding) [facility] 98-[facility]-2716[facility] statusKind[facility] Tobacco smoking status NHISTobacco smoking consumption unknownNOMS Healthcare Start: 12-09-7104Wpd assigned at birthNot on fileTIMPANOGOS REG[facility] HealthcareTobacco smoking statusNeHolmes County [facility] CareStart: 79-04-7384KvlSyei (finding)[facility]: 74-70-2342Doolnqe smoking status Light tobacco smoker (finding)[facility] Functional Status KwidDtdipmoojaSfgfwdTdspzqaz02-46-5672Qpkywlekbe StatusN/[facility]09-28-2024Functional StatusN/[facility] Clinical Notes 11-23-2021 to 01-20-2025 Note Date & UwomOarnSrduawtf09-44-5670 Hospital Discharge instructions Patient Education 01/20/2025 13:36:43 Food Poisoning, Tyxs-pc-Hllm Food Poisoning Food poisoning is caused by eating or drinking foods or drinks that are spoiled. In most cases, food poisoning is mild and lasts 2 7 days. However, some cases can be serious, especially for people who have a weak body defense system (immune system), like older people, children and babies, and women. What are the causes? This condition is caused by eating foods that contain viruses, bacteria, parasites, or mold. This can happen by: Not washing your hands well enough or often enough. Not storing food properly. Preparing, serving, and storing food on surfaces that are not clean. Cooking or eating with utensils that are not clean. Not cooking food to the right temperature. Viruses, bacteria, or parasites can hurt the intestine. This often causes very bad watery poop (diarrhea). The most common causes of this condition are: Viruses, such as: ?Norovirus. ?Rotavirus. Bacteria, such as: ?Salmonella. ?Listeria. ?E. coli (Escherichia coli). Parasites, such as: ?Giardia. ?Toxoplasma gondii. What are the signs or symptoms? Feeling like you may vomit (nauseous). Vomiting. Cramping or belly pain. Watery poop. Fever. Chills. Muscle aches. Not having enough water in the body (dehydration). How is this treated? Making sure that you get enough to drink. Taking medicines. In very bad cases, you may need: ?To be treated in a hospital. ?To get fluids through an IV tube. Follow these instructions at home: Eating and drinking Drink enough fluids to keep your pee (urine) pale yellow. You may need to drink small amounts of clear liquids often. Avoid: ?Milk. ?Caffeine. ?Alcohol. Ask your doctor how you should get enough fluid in your body. Eat small meals often instead of eating large meals. Medicines Take hzup-ypb-olhsncn and prescription medicines only as told by your doctor. Ask your doctor if you should keep taking any of your regular medicines. If you were prescribed an antibiotic medicine, take it as told by your doctor. Do not stop taking the antibiotic even if you start to feel better. General instructions Wash your hands with soap and water for at least 20 seconds: ?Before you prepare food. ?After you go to the bathroom (use the toilet). Make sure that the people who live with you also wash their hands often. Rest at home until you feel better. Clean surfaces that you touch with a product that contains chlorine bleach. Keep all follow-up visits. How is this prevented? Before and after you handle raw foods: ?Wash your hands. ?Wash surfaces used to prepare the food. ?Wash utensils. Do not prepare or store raw meat in the same place you prepare or store fresh fruits and vegetables. Keep refrigerated foods colder than 40 F (5 C). Serve hot foods right away or keep them heated above 140 F (60 C). Store dry foods in cool, dry spaces. Keep them away from too much heat or moisture. Throw out any foods that: ?Do not smell right. ?Are in cans that are bulging. Heat canned foods fully before you taste them. Drink bottled or germ-free (sterile) water when you travel. Get help right away if: You have trouble: ?Breathing. ?Swallowing. ?Talking. ?Moving. You have blurry vision. You faint. The whites of your eyes turn yellow (jaundice). You cannot eat or drink without vomiting. You continue to vomit or have watery poop. You start to have pain in your belly, your belly pain gets worse, or your belly pain stays in one small area. You have a fever. You have blood or mucus in your poop (stools), or your poop looks dark black and tarry. You have signs of not having enough water in your body, such as: ?Dark pee, very little pee, or no pee. ?Not making tears while crying. ?Dry mouth or lips. ?Sunken eyes. ?Being sleepy. ?Feeling weak. ?Being dizzy. These symptoms may be an emergency. Get help right away. Call 911. Do not wait to see if the symptoms will go away. Do not drive yourself to the hospital. Summary Food poisoning is an illness that is caused by eating or drinking spoiled foods or drinks. Symptoms may include feeling like you may vomit, vomiting, and having watery poop. In most cases, the illness will get better on its own in 2 7 days. In very bad cases, you may need to stay at the hospital. This information is not intended to replace advice given to you by your health care provider. Make sure you discuss any questions you have with your health care provider. Document Revised: 04/10/2022 Document Reviewed: 04/10/2022 [employer] Patient Education 2023 [employer]. Follow Up Care 01/20/2025 12:15:27 With:NONE, XXXX Address:Unknown When: Unknown [facility] 08-19-2025 NotePatient Education Gastroenterology Food Poisoning Food poisoning is caused by eating or drinking foods or drinks that are spoiled. In most cases, food poisoning is mild and lasts 2?7 days. However, some cases can be serious, especially for people who have a weak body defense system (immune system), like older people, children and babies, and women. What are the causes? This condition is caused by eating foods that contain viruses, bacteria, parasites, or mold. This can happen by: ??? Not washing your hands well enough or often enough. ??? Not storing food properly. ??? Preparing, serving, and storing food on surfaces that are not clean. ??? Cooking or eating with utensils that are not clean. ??? Not cooking food to the right temperature. Viruses, bacteria, or parasites can hurt the intestine. This often causes very bad watery poop (diarrhea). The most common causes of this condition are: ??? Viruses, such as: ? Norovirus. ? Rotavirus. ??? Bacteria, such as: ? Salmonella. ? Listeria. ? E. coli (Escherichia coli). ??? Parasites, such as: ? Giardia. ? Toxoplasma gondii. What are the signs or symptoms? Feeling like you may vomit (nauseous). ??? Vomiting. ??? Cramping or belly pain. ??? Watery poop. ??? Fever. ??? Chills. ??? Muscle aches. ??? Not having enough water in the body (dehydration). How is this treated? Making sure that you get enough to drink. ??? Taking medicines. ??? In very bad cases, you may need: ? To be treated in a hospital. ? To get fluids through an IV tube. Follow these instructions at home: Eating and drinking ??? Drink enough fluids to keep your pee (urine) pale yellow. ??? You may need to drink small amounts of clear liquids often. ??? Avoid: ? Milk. ? Caffeine. ? Alcohol. ??? Ask your doctor how you should get enough fluid in your body. ??? Eat small meals often instead of eating large meals. Medicines ??? Take gkcv-ftf-hgtnixa and prescription medicines only as told by your doctor. ??? Ask your doctor if you should keep taking any of your regular medicines. ??? If you were prescribed an antibiotic medicine, take it as told by your doctor. Do not stop taking the antibiotic even if you start to feel better. General instructions ??? Wash your hands with soap and water for at least 20 seconds: ? Before you prepare food. ? After you go to the bathroom (use the toilet). ??? Make sure that the people who live with you also wash their hands often. ??? Rest at home until you feel better. ??? Clean surfaces that you touch with a product that contains chlorine bleach. ??? Keep all follow-up visits. How is this prevented? Before and after you handle raw foods: ? Wash your hands. ? Wash surfaces used to prepare the food. ? Wash utensils. ??? Do not prepare or store raw meat in the same place you prepare or store fresh fruits and vegetables. ??? Keep refrigerated foods colder than 40?F (5?C). ??? Serve hot foods right away or keep them heated above 140?F (60?C). ??? Store dry foods in cool, dry spaces. Keep them away from too much heat or moisture. ??? Throw out any foods that: ? Do not smell right. ? Are in cans that are bulging. ??? Heat canned foods fully before you taste them. ??? Drink bottled or germ-free (sterile) water when you travel. Get help right away if: ??? You have trouble: ? Breathing. ? Swallowing. ? Talking. ? Moving. ??? You have blurry vision. ??? You faint. ??? The whites of your eyes turn yellow (jaundice). ??? You cannot eat or drink without vomiting. ??? You continue to vomit or have watery poop. ??? You start to have pain in your belly, your belly pain gets worse, or your belly pain stays in one small area. ??? You have a fever. ??? You have blood or mucus in your poop (stools), or your poop looks dark black and tarry. ??? You have signs of not having enough water in your body, such as: ? Dark pee, very little pee, or no pee. ? Not making tears while crying. ? Dry mouth or lips. ? Sunken eyes. ? Being sleepy. ? Feeling weak. ? Being dizzy. These symptoms may be an emergency. Get help right away. Call 911. ??? Do not wait to see if the symptoms will go away. ??? Do not drive yourself to the hospital. Summary ??? Food poisoning is an illness that is caused by eating or drinking spoiled foods or drinks. ??? Symptoms may include feeling like you may vomit, vomiting, and having watery poop. ??? In most cases, the illness will get better on its own in 2?7 days. ??? In very bad cases, you may need to stay at the hospital. This information is not intended to replace advice given to you by your health care provider. Make sure you discuss any questions you have with your health care provider. Document Revised: 04/10/2022 Document Reviewed: 04/10/2022 Elsevier Patient Education ? 20 (more content not included)...[facility]06-25-2025 Hospital Discharge instructions Patient Education 11/26/2024 13:53:06 Nausea and Vomiting, Adult Nausea and Vomiting, Adult Nausea is the feeling that you have an upset stomach or that you are about to vomit. As nausea getsworse, it can lead to vomiting. Vomiting is when stomach contents forcefully come out of your mouthas a result of nausea. Vomiting can make you feel weak and cause you to become dehydrated. Dehydration can make you feel tired and thirsty, cause you to have a dry mouth, and decrease how often you urinate. Older adults and people with other diseases or a weak disease-fighting system (immune system) are at higher risk for dehydration. It is important to treat your nausea and vomiting as told by your health care provider. Follow these instructions at home: Watch your symptoms for any changes. Tell your health care provider about them. Eating and drinking Take an oral rehydration solution (ORS). This is a drink that is sold at pharmacies and retail stores. Drink clear fluids slowly and in small amounts as you are able. Clear fluids include water, ice chips, low-calorie sports drinks, and fruit juice that has water added (diluted fruit juice). Eat bland, aori-sc-qpzvks foods in small amounts as you are able. These foods include bananas, applesauce, rice, lean meats, toast, and crackers. Avoid fluids that contain a lot of sugar or caffeine, such as energy drinks, sports drinks, and soda. Avoid alcohol. Avoid spicy or fatty foods. General instructions Take isir-rgm-gpqzycf and prescription medicines only as told by your health care provider. Drink enough fluid to keep your urine pale yellow. Wash your hands often using soap and water for at least 20 seconds. If soap and water are not available, use hand water resources technical officer. Make sure that everyone in your household washes their hands well and often. Rest at home while you recover. Watch your condition for any changes. Take slow and deep breaths when you feel nauseous. Keep all follow-up visits. This is important. Contact a health care provider if: Your symptoms get worse. You have new symptoms. You have a fever. You cannot drink fluids without vomiting. Your nausea does not go away after 2 days. You feel light-headed or dizzy. You have a headache. You have muscle cramps. You have a rash. You have pain while urinating. Get help right away if: You have pain in your chest, neck, arm, or jaw. You feel extremely weak or you faint. You have persistent vomiting. You have vomit that is bright red or looks like black coffee grounds. You have bloody or black stools (feces) or stools that look like tar. You have a severe headache, a stiff neck, or both. You have severe pain, cramping, or bloating in your abdomen. You have difficulty breathing, or you are breathing very quickly. Your heart is beating very quickly. Your skin feels cold and clammy. You feel confused. You have signs of dehydration, such as: ?Dark urine, very little urine, or no urine. ?Cracked lips. ?Dry mouth. ?Sunken eyes. ?Sleepiness. ?Weakness. These symptoms may be an emergency. Get help right away. Call 911. Do not wait to see if the symptoms will go away. Do not drive yourself to the hospital. Summary Nausea is the feeling that you have an upset stomach or that you are about to vomit. As nausea getsworse, it can lead to vomiting. Vomiting can make you feel weak and cause you to become dehydrated. Follow instructions from your health care provider about eating and drinking to prevent dehydration. Take lmjn-qix-emnumnk and prescription medicines only as told by your health care provider. Contact your health care provider if your symptoms get worse, or you have new symptoms. Keep all follow-up visits. This is important. This information is not intended to replace advice given to you by your health care provider. Make sure you discuss any questions you have with your health care provider. Document Revised: 11/25/2021 Document Reviewed: 11/25/2021 [employer] Patient Education 2023 Widbook. Follow Up Care 11/26/2024 12:43:20 With:Jeri FRANCIS CNP Address: When: Unknown With:Allyssa TRIVEDI, Sincere Montgomery, ADRIENNE, MED Address: When: Unknown With:Jeramy JOHN DO, FAAFP, ADRIENNE, PED Address: [address] [place] [address] [place] [address]- When: Unknown [facility] 06-25-2025 NotePatient Education Gastroenterology Nausea and Vomiting, Adult Nausea is the feeling that you have an upset stomach or that you are about to vomit. As nausea getsworse, it can lead to vomiting. Vomiting is when stomach contents forcefully come out of your mouthas a result of nausea. Vomiting can make you feel weak and cause you to become dehydrated. Dehydration can make you feel tired and thirsty, cause you to have a dry mouth, and decrease how often you urinate. Older adults and people with other diseases or a weak disease-fighting system (immune system) are at higher risk for dehydration. It is important to treat your nausea and vomiting as told by your health care provider. Follow these instructions at home: Watch your symptoms for any changes. Tell your health care provider about them. Eating and drinking ??? Take an oral rehydration solution (ORS). This is a drink that is sold at pharmacies and retail stores. ??? Drink clear fluids slowly and in small amounts as you are able. Clear fluids include water, icechips, low-calorie sports drinks, and fruit juice that has water added (diluted fruit juice). ??? Eat bland, vsch-lz-ynwiic foods in small amounts as you are able. These foods include bananas, applesauce, rice, lean meats, toast, and crackers. ??? Avoid fluids that contain a lot of sugar or caffeine, such as energy drinks, sports drinks, andsoda. ??? Avoid alcohol. ??? Avoid spicy or fatty foods. General instructions ??? Take jwwy-qhx-fglmwdy and prescription medicines only as told by your health care provider. ??? Drink enough fluid to keep your urine pale yellow. ??? Wash your hands often using soap and water for at least 20 seconds. If soap and water are not available, use hand water resources technical officer. ??? Make sure that everyone in your household washes their hands well and often. ??? Rest at home while you recover. ??? Watch your condition for any changes. ??? Take slow and deep breaths when you feel nauseous. ??? Keep all follow-up visits. This is important. Contact a health care provider if: ??? Your symptoms get worse. ??? You have new symptoms. ??? You have a fever. ??? You cannot drink fluids without vomiting. ??? Your nausea does not go away after 2 days. ??? You feel light-headed or dizzy. ??? You have a headache. ??? You have muscle cramps. ??? You have a rash. ??? You have pain while urinating. Get help right away if: ??? You have pain in your chest, neck, arm, or jaw. ??? You feel extremely weak or you faint. ??? You have persistent vomiting. ??? You have vomit that is bright red or looks like black coffee grounds. ??? You have bloody or black stools (feces) or stools that look like tar. ??? You have a severe headache, a stiff neck, or both. ??? You have severe pain, cramping, or bloating in your abdomen. ??? You have difficulty breathing, or you are breathing very quickly. ??? Your heart is beating very quickly. ??? Your skin feels cold and clammy. ??? You feel confused. ??? You have signs of dehydration, such as: ? Dark urine, very little urine, or no urine. ? Cracked lips. ? Dry mouth. ? Sunken eyes. ? Sleepiness. ? Weakness. These symptoms may be an emergency. Get help right away. Call 911. ??? Do not wait to see if the symptoms will go away. ??? Do not drive yourself to the hospital. Summary ??? Nausea is the feeling that you have an upset stomach or that you are about to vomit. As nausea gets worse, it can lead to vomiting. Vomiting can make you feel weak and cause you to become dehydrated. ??? Follow instructions from your health care provider about eating and drinking to prevent dehydration. ??? Take gfnd-qlu-lahostv and prescription medicines only as told by your health care provider. ??? Contact your health care provider if your symptoms get worse, or you have new symptoms. ??? Keep all follow-up visits. This is important. This information is not intended to replace advice given to you by your health care provider. Make sure you discuss any questions you have with your health care provider. Document Revised: 11/25/2021 Document Reviewed: 11/25/2021 [employer] Patient Education ? 2023 Widbook.[facility] 08-15-2024 NoteCardiac Electrophysiology Consultation Reason for Consult: Narrow complex tachycardia, palpitations Referring Ship'S Electronic Warfare Officer/PCP: Yaritza Madison No ref. provider found HPI: Hernesto Sloan, thank you for your kind referral of Mr. Blanca Mejia. For the purpose of completion, I will summarize his medical history. 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 Notably, he was recently in the emergency room prior to your visit when he started to have palpitations, chest pain as well as shortness of breath while he was doing heavy lifting of boxes at work. Following that, he then developed a sense of weakness. However, by the time he was evaluated in the emergency room his palpitations had abated and the EKG showed sinus rhythm with Q waves. Based on further workup his troponin was unremarkable. In order to complete the workup of these palpitations, you had given him an event monitor which I reviewed with the patient on the clinic visit today. On the event monitor, he has narrow complex tachycardia, with short RP interval and it seems to be initiated by PAC. He denies any other symptoms such as syncope/presyncope. Electrophysiology History: SVT, narrow complex tachycardia, short RP tachycardia, symptomatic palpitations History reviewed. No pertinent past medical history. Past Surgical History: Procedure Laterality Date EXCISION / REPAIR HYDROCELE PEDIATRIC RECTAL SURGERY TONSILLECTOMY No current outpatient medications on file. No current facility-administered medications for this visit. Physical Examination: BP 111/76 (BP Location: Left arm, Patient Position: Standing, BP Cuff Size: Adult long) Pulse 90 Ht 1.854 m (6' 1 ) Wt 109 kg (241 lb) BMI 31.80 kg/m??? Gen: No acute distress Neck: No LAD, No JVD elevation CVS: S1, S2 normal, no rubs, no murmurs Pulm: CTABL Abdomen: NTND Neuro: AAO x 3 Extremity: No edema Psych: Mood and affect is normal .labs No results found for: WBC , HGB , HCT , MCV , PLT No results found for: GLUCOSE , CALCIUM , NA , K , CO2 , CL , BUN , CREATININE EKG: No results found for this or any previous visit (from the past 4464 hour(s)). 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 I had an extensive conversation with Mr. Mejia as well as his family members during the clinic visit today. As I mentioned most likely the diagnosis based on the review of event monitor seems to be narrow complex tachycardia with short RP interval. I then discussed the differential diagnosis of narrow complex tachycardia that includes atrial tachycardia, AVNRT, AVRT. I also discussed that such an accurate distinction can only be made based on the EP study. I then discussed the plan of diagnostic EP study plus minus catheter ablation which will help us assess the mechanism of his SVT. I discussed the nature of the procedure as well as nature of ablation. Furthermore, I then discussed the potential risk of complications that includes but not limited to vascular complications, bleeding issues, pericardial effusion, cardiac tamponade, risk of stroke, risk of MT including the risk of . I specifically also discussed the potential need for pacemaker implantation if he were to have AVNRT or a Para-Hisian accessory pathway/septal pathway. On balance, I also discussed the conservative option of trying Inderal 10 mg on a as needed basis when he has episodes just immediately prior to the episodes if he could anticipate the symptoms to occur. After my extensive discussion, he will contemplate the plan of ablation versus medical therapy further and would let me know.For the purpose of completion, we will follow him in 3 months. As always, it is a pleasure to partake in the shared care of our patients. Alpesh Manzano MD, ScM, Msc Cardiac Electrophysiology Email: [email or web address]01-30-2025 NoteUT Cardiology - [facility] Subjective Blanca Mejia is a 23 y.o. year old male patient being seen to establish care. He presented to [facility] 2 days ago for palpitations. [...] horseshoe kidney. 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 Recently he was evaluated [...] going to investigate by an echocardiogram given sc (more content not included)...[facility]10-10-2024 History of Present illness Narrative* VINOD Moses - 03/13/2024 1:15 PM EDT Images from the original note were not included. Assessment/Plan * Hannah Moran MD - 03/13/2024 1:15 PM EDT Assessment/Plan begin Pred acetate q2 documented in this encounterMet[facility] [id number] Hospital Discharge instructions Patient Education 03/09/2024 16:02:06 Bacterial Conjunctivitis, Adult, Mcwn-tc-Igoc Bacterial Conjunctivitis, Adult Bacterial conjunctivitis is an [...] start to feel better. Take or apply gagk-txj-nqqwfrc and prescription medicines only as told by [...] provider. Document Revised: 08/31/2021 Document Reviewed: 08/31/2021 [employer] Patient Education 2023 [employer]. Follow Up Care 03/09/2024 14:02:26 With:Ulises Campbell Address: [address], [address] Business (1) When:03/12/2024 15:38:22 [facility] 10-06-2024 NoteED Patient Education Note Infectious Disease Bacterial [...] to feel better. ? Take or apply yaso-aqz-nbcvyym and prescription medicines only as told by [...] provider. Document Revised: 08/31/2021 Document Reviewed: 08/31/2021 [employer] Patient Education ? 2023 [employer].[facility] 03-09-2024 Evaluation + Plan noteExtracted from:Title:ED NoteAuthor:Angela Cardenas.Date:03/09/24 1. Conjunctivitis of right e ye (H10.9: [...] EDT, STAT, Start date 03/09/24 14:13:00 EDT [facility] 10-06-2024 History of Present illness Narrative* Juanita Marinleli REMINGTON - 03/09/2024 12:40 PM EDT HPI: Historian [...] Additional Comments: Pt states he went to [facility] ER last Sunday for pink eye and [...] right eye See above. documented in this encounterMet[facility] [id number] Hospital Discharge instructions Patient Education 03/01/2024 10:08:31 Bacterial Conjunctivitis, Adult, Zeir-rq-Lqrm Bacterial Conjunctivitis, Adult Bacterial conjunctivitis is an [...] start to feel better. Take or apply swsc-fdq-xkwyito and prescription medicines only as told by [...] provider. Document Revised: 08/31/2021 Document Reviewed: 08/31/2021 [employer] Patient Education 2023 [employer]. Follow Up Care 03/01/2024 08:57:04 With:Hannah Moran Address: [address] [place] [id number] Business (1) When:03/04/2024 10:08:12 Comments:Call to schedule an appointment with the clinical training specialist in the next 2 to 3 days. Use the antibiotic drops as prescribed. Return to the ED with any new or worsening symptoms. [facility] 09-28-2024 NoteED Patient Education Note Infectious Disease [...] to feel better. ? Take or apply qetm-nhk-yvlebun and prescription medicines only as told by [...] provider. Document Revised: 08/31/2021 Document Reviewed: 08/31/2021 [employer] Patient Education ? 2023 [employer].[facility] 11-23-2021 Hospital Discharge instructions Additional Instructions sutures [...] purulent drainage fever chills or any other [facility] + Plan note No data available for this section [facility] Evaluation noteNo assessment information available [facility] Work Phone: Evaluation note* Diagnosis Acute right eye pain- Primary Blurry vision, right eye Other specified visual disturbances [facility] Diagnosis Uveitis, anterior- Primary Unspecified iridocyclitis documented [facility] this encounter [facility] No data available for this section [facility] Chief Complaint and Reason for Visit Chief Complaint R [place] Family History No Family History Records Found Relationship Condition Age at Onset Recorded Date/T yelena father Malignant neoplasm of colon Unknown grandparentMalignant neoplasm of colonUnknown Advance Directives No Advanced Directives Records Found Advance Directive Response Recorded Date/ Time Advance Directives No March 30, 2017 12:57pm Summary Purpose Additional Source Comments Care Teams (unrecognized sec tion and content) Team Status: Inactive Member Role Status Dates PHYSICIAN NO FAMILY Primary Care Provider Active Shyanne Lovelace ProviderActive Team Status: Active Member Role Status Dates [...] section and content) DATE CREATED AUTHOR 03/15/2024 [facility] DATE CREATED AUTHOR AUTHOR'S ORGANIZ ATION 09/27/2024 [facility] DATE CREATED AUTHOR AUTHOR'S ORGANIZ ATION 01/21/2025 [facility] Reason for Visit (unrecogniz ed section and content) ReasonCommentsEye PainConjunctivitis FOR RECORDS PERTAINING TO PATIENTS WHO ARE [...] BE BASED ON THE PRIMARY CLINICAL RECORDS. [facility] [employer] [facility]. provides no warranty or guarantee of the accuracy or completeness of information in this document.
[2025-05-12 20:12] LABS: Neisseria gonorrhoeae, NAA Negative (Negative)
== END 2025-05-11 12:43 | disposition home or self-care (01) ==
PROVIDERS: Emergency Provider Emergency Medicine
DX: N34.2 Other urethritis (principal)
CPT/HCPCS: 81003; 87491; 87591; 96372; 99283; 99284; J0696